=== PATIENT | female | born 1990 | race Caucasian/White ===

== ENCOUNTER 2017-05-25 12:05 | Inpatient (IN) | payer OTHER ==
[2017-05-25] MEDS ORDERED: LIDOCAINE 1% 20 ML VIAL (10MG/ML) FOR IV START INTRADERMA PRN (12:37)
[2017-05-25] MEDS ORDERED: LACTATED RINGERS 1,000 ML IV ONE (12:37)
[2017-05-25] MEDS ORDERED: CITRIC ACID-SODIUM CITRATE 15 ML CUP PO ONE (12:37)
[2017-05-25] MEDS ORDERED: ceFAZolin IN SWFI 2 GM/20 ML SYRINGE IVP ONE (12:37)
[2017-05-25] MEDS ORDERED: OXYTOCIN 10 UNIT/ML 1 ML VIAL ONE (12:44)
[2017-05-25] MEDS ORDERED: ceFAZolin 1,000 MG VIAL ONE (12:44)
[2017-05-25] MEDS ORDERED: ONDANSETRON 4 MG/2 ML VIAL ONE (12:44)
[2017-05-25] MEDS ORDERED: SUCCINYLCHOLINE CHLORIDE 100 MG/5 ML SYR IV ONE (12:44)
[2017-05-25] MEDS ORDERED: PROPOFOL 10 MG/ML 20 ML VIAL IV ONE (12:44)
[2017-05-25] MEDS ORDERED: DEXAMETHASONE SOD PHOS (MDV) 100 MG/10 ML VIAL ONE (12:44)
[2017-05-25] MEDS ORDERED: KETOROLAC 30 MG/ML 1 ML VIAL ONE (12:44)
[2017-05-25] MEDS ORDERED: fentaNYL (PF) 50 MCG/ML 2 ML AMP ONE (12:44)
--- NOTE | 2017-05-25 13:29 | P.HPOB ---
History of Present Illness H&P Date: 05/25/17 Chief Complaint: Contractions This is a 26-year-old female 3 para 1 with an estimated date of confinement of 05/27/2017, estimated gestational age of 39-5/7 weeks, who presented to labor and delivery complaining of contractions that have worsened since earlier this morning. She denies any rupture of membranes or vaginal bleeding. She admits to good movement. care has been with Dr. Saenz and has been uncomplicated. She is scheduled for repeat section in 2 days. labs: GC/chlamydia-negative Glucose-107 Blood type-A+ Antibody screen-negative Hemoglobin-13.3 Rubella-immune HIV-nonreactive Hepatitis B surface antigen-negative RPR-nonreactive Obstetrical ultrasound-normal anatomy One hour Glucola-141 Three-hour Glucola-within normal limits Review of Systems Constitutional: Denies chills, Denies fever Eyes: denies blurred vision, denies pain Ears, nose, mouth and throat: Denies headache, Denies sore throat Cardiovascular: Denies chest pain, Denies shortness of breath Respiratory: Denies cough Gastrointestinal: Reports abdominal pain (Contractions) Genitourinary: Reports pelvic pain, Reports , Denies abnormal vaginal bleeding Musculoskeletal: Reports low back pain Neurological: Denies numbness, Denies weakness Psychiatric: Denies anxiety, Denies depression Past Medical History Past Medical History: No Reported History History of Any Multi-Drug Resistant Organisms: None Reported Past Surgical History: Section, Cholecystectomy Additional Past Surgical History / Comment(s): D&C Past Anesthesia/Blood Transfusion Reactions: No Reported Reaction Past Psychological History: No Psychological Hx Reported Smoking Status: Never smoker Past Alcohol Use History: None Reported Past Drug Use History: None Reported - Past Family History Mother Family Medical History: Cancer Additional Family Medical History / Comment(s): CERVICAL CA Medications and Allergies Home Medications Medication Instructions Recorded Confirmed Type Pnv,Calcium 72/Iron/Folic Acid 1 tab PO DAILY 05/22/17 05/22/17 History [ Plus Tablet] Allergies Allergy/AdvReac Type Severity Reaction Status Date / Time nickel Allergy Unknown Rash/Hives Verified 05/22/17 14:37 Exam Osteopathic Statement: *. No significant issues noted on an osteopathic structural exam other than those noted in the History and Physical/Consult. HEENT: Within normal limits Heart: Regular rate and rhythm Lungs: Clear to auscultation bilaterally Abdomen: Cervix: Closed heart tones: 140s with repetitive late decelerations to the 60s following most of the contractions. Contractions every 2-3 minutes Extremities: Negative Homans Assessment and Plan (1) 39 weeks gestation of Current Visit: Yes Status: Acute Code(s): Z3A.39 - 39 WEEKS GESTATION OF SNOMED Code(s): 17928147 (2) Non-reassuring heart rate or rhythm affecting management of fetus Current Visit: Yes Status: Acute Code(s): [id number] - SNOMED Code(s): 294910905 Plan: Admission. Emergent low transverse section. I have discussed the risks, benefits, and alternative therapies for the above- mentioned procedure and for both sedation/anesthesia as well as necessary blood products administration, if indicated, as they pertain to this patient. The patient has indicated her understanding and acceptance of the risks and procedures discussed.
--- NOTE | 2017-05-25 13:43 | P.OP ---
Date of Procedure: 05/25/17 Preoperative Diagnosis: 1. Intrauterine at 39-5/7 weeks. 2. Repetitive late decelerations. 3. History of previous section. Postoperative Diagnosis: Same Procedure(s) Performed: Repeat low transverse section Anesthesia: RHONDA Surgeon: Diana Dunham Venereal Disease Control Head #1: Janine Lacey Estimated Blood Loss (ml): 600 Pathology: other (Placenta) Condition: stable Disposition: floor Indications for Procedure: This is a 26-year-old female 3 para 1 at 39-5/7 weeks who presented with contractions. She was found to be having repetitive late decelerations despite IV hydration. She was counseled emergency section. She has a scheduled section in 2 days from now. I have discussed the risks, benefits, and alternative therapies for the above- mentioned procedure and for both sedation/anesthesia as well as necessary blood products administration, if indicated, as they pertain to this patient. The patient has indicated her understanding and acceptance of the risks and procedures discussed. Operative Findings: A viable female infant is noted in the vertex presentation with scores of 7 at 1 minute and 9 at 5 minutes and weight of 7 lbs. 15 oz. Thick meconium was noted. Normal uterus tubes and ovaries are noted. There is noted to be what appears to be old blood/hematoma behind the bladder on the left side. This is stable and does not appear to be new. Description of Procedure: The patient is taken to the operating room where she is placed in the dorsal supine position with leftward tilt. Heart tones are placed on the monitor upon arrival to the section room and repetitive decelerations are still noted. She is prepped and draped in the normal sterile fashion. General anesthesia is given. Once anesthesia gave the okay, the surgery was started. A Pfannenstiel skin incision was made with a scalpel through the previous laparotomy scar. A second knife was used to carry the incision down to the underlying layer of fascia. The fascia was nicked in the midline with a scalpel and then extended laterally bilaterally with Tena scissors. The anterior lip of the fascia was grasped with 2 Marybeth clamps and then dissected off the underlying rectus muscle in the midline with Tena scissors. The inferior aspect of the fascial incision was grasped with 2 Marybeth clamps and dissected off the underlying rectus muscle and the midline with Tena scissors. Next the peritoneum layer was tented up with 2 hemostats and then entered sharply with the scalpel. The incision is extended superiorly and inferiorly with Metzenbaum scissors. Next a DeLee retractor is placed. The vesicouterine peritoneum is entered sharply with Metzenbaum scissors and extended laterally bilaterally with Metzenbaum scissors and then the bladder flap is pushed inferiorly. The lower uterine segment is incised in transverse fashion with the scalpel and then bluntly entered with a hemostat. Thick meconium fluid is noted. The incision was then extended laterally bilaterally with 2 fingers. Next the 's head is delivered through the incision. Nose and mouth are bulb suctioned. The remainder of the is easily delivered and placed on mother's abdomen. Cord is clamped and cut. is taken to warmer by nursing staff. Uterine fundus is gently massaged and placenta is delivered manually. Uterus is exteriorized and cleared of all clots and debris. Uterine incision is closed with 0 Vicryl suture in a running locked fashion. A second layer of 0 Vicryl suture is used in a running fashion for hemostasis. Several interrupted stitches were also placed for hemostasis. The bladder flap was not reapproximated due to what appears to be an old hematoma on the left side behind the bladder. This is stable and not expanding and appears to be old. Posterior cul-de-sac is suctioned of all clots and debris. Uterus is returned to the abdomen. Incision is noted to be hemostatic. Peritoneal layer is closed with 0 Vicryl suture in a running fashion. Muscle layer is reapproximated with 0 Vicryl suture in interrupted fashion. Fascia layer is then closed with 0 PDS suture with 2 sutures meeting in the midline and the knots buried in either side and in the midline. The subcutaneous tissue was then closed with 2-0 Vicryl suture. Skin layer was then closed with letty. All sponge and needle counts are correct. The patient is taken to recovery room in stable condition.
[2017-05-25 13:49] LABS: Basophils # (A) 0.1 k/uL (0-0.2); Basophils % (A) 1 %; Eosinophils # (A) 0.1 k/uL (0-0.7); Eosinophils % (A) 1 %; HCT 46.5 % (34.0-46.0); HGB 15.1 gm/dL (11.4-16.0); Lymphocytes # (A) 2.3 k/uL (1.0-4.8); Lymphocytes % (A) 19 %; MCH 28.7 pg (25.0-35.0); MCHC 32.4 g/dL (31.0-37.0); MCV 88.6 fL (80.0-100.0); Monocytes # (A) 0.8 k/uL (0-1.0); Monocytes % (A) 6 %; Neutrophils # (A) 8.7 k/uL (1.3-7.7); Neutrophils % (A) 72 %; Platelet Count 174 k/uL (150-450); RBC 5.25 m/uL (3.80-5.40); WBC 12.1 k/uL (3.8-10.6)
[2017-05-25 14:21] LABS: Large Platelets Present
[2017-05-25] MEDS ORDERED: diphenhydrAMINE 50 MG CAP PO PRN (14:36)
[2017-05-25] MEDS ORDERED: ACETAMINOPHEN TAB 325 MG TAB PO PRN (14:36)
[2017-05-25] MEDS ORDERED: diphenhydrAMINE 50 MG/ML 1 ML VIAL IVP PRN ×2 (14:36)
[2017-05-25] MEDS ORDERED: Acetaminophen-Codeine 300-30mg TAB PO PRN (14:36)
[2017-05-25] MEDS ORDERED: diphenhydrAMINE 25 MG CAP PO PRN (14:36)
[2017-05-25] MEDS ORDERED: METOCLOPRAMIDE 5 MG/ML 2 ML VIAL IVP PRN ×2 (14:36)
[2017-05-25] MEDS ORDERED: NALOXONE 0.4 MG/ML 1 ML VIAL IV PRN ×2 (14:36)
[2017-05-25] MEDS ORDERED: LACTATED RINGERS 1,000 ML IV SCH (14:36)
[2017-05-25] MEDS ORDERED: OXYTOCIN 20 UNITS/1000 ML NS 1,000 ML IV SCH (14:36)
[2017-05-25] MEDS ORDERED: ZOLPIDEM 5 MG TAB PO PRN (14:36)
[2017-05-25] MEDS ORDERED: ONDANSETRON 4 MG/2 ML VIAL IVP PRN ×2 (14:36)
[2017-05-25] MEDS ORDERED: SIMETHICONE 80 MG CHEWABLE PO PRN (14:36)
[2017-05-25 15:29] VITALS: BMI 32.5
[2017-05-25] MEDS: HYDROmorphone PCA 5 MG/25 ML SYRINGE IV PRN (16:45)
[2017-05-25] MEDS: KETOROLAC 30 MG/ML 1 ML VIAL IVP PRN (21:18)
[2017-05-25] MEDS: LACTATED RINGERS 1,000 ML IV SCH (21:20)
[2017-05-25] MEDS: SENNOSIDES-DOCUSATE SODIUM 1 EACH TAB PO SCH (21:28)
[2017-05-26] MEDS: KETOROLAC 30 MG/ML 1 ML VIAL IVP PRN ×2 (03:49→10:05)
[2017-05-26] MEDS: LACTATED RINGERS 1,000 ML IV SCH ×4 (03:59→21:05)
[2017-05-26] MEDS: HYDROmorphone PCA 5 MG/25 ML SYRINGE IV PRN (05:39)
[2017-05-26 08:44] LABS: Basophils # (A) 0.1 k/uL (0-0.2); Basophils % (A) 0 %; Eosinophils % (A) 0 %; Lymphocytes # (A) 2.6 k/uL (1.0-4.8); Lymphocytes % (A) 18 %; MCH 28.4 pg (25.0-35.0); MCHC 32.4 g/dL (31.0-37.0); MCV 87.6 fL (80.0-100.0); Mean Platelet Volume 11.2; Monocytes # (A) 0.8 k/uL (0-1.0); Monocytes % (A) 6 %; Neutrophils # (A) 10.5 k/uL (1.3-7.7); Neutrophils % (A) 74 %; Platelet Count 135 k/uL (150-450); RBC 4.11 m/uL (3.80-5.40); RDW 13.9 % (11.5-15.5); WBC 14.2 k/uL (3.8-10.6)
[2017-05-26 09:04] LABS: HGB 11.7 gm/dL (11.4-16.0)
--- NOTE | 2017-05-26 09:36 | P.PNOBGPC ---
Subjective - Subjective Principal diagnosis: Post Op day 1 repeat c/s Interval history: doing well. c/o of sore throat as she had general anesthesia. no other problems or concerns this am. all questions answered Patient reports: Reports appetite normal, Reports voiding normally, Reports pain well controlled, Reports ambulating normally : doing well Objective - Vital Signs Latest vital signs: Vital Signs Temp Pulse Resp BP Pulse Ox 05/26/17 03:55 98.3 F 68 16 100/46 98 05/26/17 00:00 98.0 F 70 16 101/51 96 05/25/17 20:00 97.7 F 72 16 122/70 100 05/25/17 15:36 98.2 F 78 18 123/74 98 05/25/17 15:14 99 05/25/17 15:00 74 20 125/77 99 05/25/17 14:36 98 05/25/17 14:30 73 18 123/73 99 05/25/17 14:15 18 L 77 H 131/77 05/25/17 14:00 75 18 130/75 97 05/25/17 13:45 76 18 132/96 98 05/25/17 13:32 97 05/25/17 13:25 96.9 F L 90 16 131/77 97 05/25/17 12:15 97.9 F 86 20 119/75 97 Intake and Output 05/25/17 05/26/17 05/26/17 22:59 06:59 14:59 Output Total 1600 725 Balance -1600 -725 Output: Urine 400 725 Uretheral (Coello) 400 Estimated Blood Loss 1200 Other: Voiding Method Indwelling Catheter # Voids 1 1 - Exam Lungs: bilateral: normal Chest: Normal S1, Normal S2 Extremities: Present: normal Abdomen: Present: normal appearance, soft. Absent: distention, tenderness Incision: Present: normal, dry, intact Uterus: Present: normal, firm - Labs Labs: Abnormal Lab Results - Last 24 Hours (Table) 05/25/17 05/26/17 Range/Units 12:40 07:19 WBC 12.1 H 14.2 H (3.8-10.6) k/uL Hct 46.5 H (34.0-46.0) % Neutrophils # 8.7 H (1.3-7.7) k/uL
[2017-05-26] MEDS: SENNOSIDES-DOCUSATE SODIUM 1 EACH TAB PO SCH ×2 (10:06→20:02)
[2017-05-26 11:33] LABS: Large Platelets Present
[2017-05-26] MEDS: IBUPROFEN 600 MG TAB PO PRN ×2 (15:26→20:02)
[2017-05-26] MEDS: Acetaminophen-Codeine 300-30mg TAB PO PRN ×2 (17:40→23:18)
[2017-05-27] MEDS: IBUPROFEN 600 MG TAB PO PRN ×2 (03:15→10:04)
[2017-05-27] MEDS: Acetaminophen-Codeine 300-30mg TAB PO PRN (08:02)
--- NOTE | 2017-05-27 08:33 | P.DS ---
Providers Date of admission: 05/25/17 12:37 Expected date of discharge: 05/27/17 Attending physician: El Saenz Primary care physician: Stated None Hospital Course: Anabelle is doing very well post op day 2. She is involuting, voiding, and she is tolerating her diet. She voices no complaints. Vital signs are stable and afebrile. Heart regular, lungs clear, extremities without pain. Abdomen soft uterus is firm lochia is reported light. Incisions clean dry and intact. We'll plan removal letty today and she'll follow up with me in 1 week. All of the discharge instructions were thoroughly reviewed and all questions are answered for her. She is stable for discharge this time. Prescription for Tylenol 3 and Motrin are provided. Patient Condition at Discharge: Good Plan - Discharge Summary New Discharge Prescriptions: New Acetaminophen-Codeine 300-30mg [Tylenol #3] 1 tab PO Q4H PRN #30 tablet PRN Reason: Pain Ibuprofen [Motrin] 600 mg PO Q6HR PRN #30 tab PRN Reason: Pain No Action Pnv,Calcium 72/Iron/Folic Acid [ Plus Tablet] 1 tab PO DAILY Discharge Medication List Pnv,Calcium 72/Iron/Folic Acid [ Plus Tablet] 1 tab PO DAILY 05/22/17 [ History] Acetaminophen-Codeine 300-30mg [Tylenol #3] 1 tab PO Q4H PRN #30 tablet [Rx] Ibuprofen [Motrin] 600 mg PO Q6HR PRN #30 tab 05/27/17 [Rx] Follow up Appointment(s)/Referral(s): El Saenz DO [Doctor of Osteopathic Medicine] - 1 Week Activity/Diet/Wound Care/Special Instructions: no heavy lifting, limit stairs and driving, and pelvic rest. If any high temperatures, heavy bleeding, or severe pain call my office.
[2017-05-27 10:00] VITALS: BP 126/59; PULSE 90; RESP 16; TEMP 98
[2017-05-27] MEDS: SENNOSIDES-DOCUSATE SODIUM 1 EACH TAB PO SCH (10:00)
== END 2017-05-27 13:00 | disposition home or self-care (01) | DRG 766 ==
LOC: FBPOP 12:05 → 4FBP 12:37
PROVIDERS: ADMIT Obstetrics & Gynecology; ATTEND Obstetrics & Gynecology
PROC: 10D00Z1 Extraction of Products of Conception, Low, Open Approach (ICD-10-PCS; principal; 2017-05-25 12:30)
DX: O34.211 Maternal care for low transverse scar from previous cesarean delivery (principal); J02.9 Acute pharyngitis, unspecified; O76 Abnormality in fetal heart rate and rhythm complicating labor and delivery; O77.0 Labor and delivery complicated by meconium in amniotic fluid; O75.89 Other specified complications of labor and delivery; Z3A.39 39 weeks gestation of pregnancy; Z37.0 Single live birth; Z80.49 Family history of malignant neoplasm of other genital organs; Z90.49 Acquired absence of other specified parts of digestive tract
CPT/HCPCS: 85025; 86850; 86900; 86901; 88307

== ENCOUNTER 2020-08-16 06:09 | Day surgery (SDC) | payer BC, OTHER ==
[2020-08-14 11:14] VITALS: BMI 37.4
--- NOTE | 2020-08-15 17:09 | P.HPOB ---
History of Present Illness H&P Date: 08/15/20 Chief Complaint: Family planning: Retained nexminor Ahn is a 29-year-old female 3 para 2 who is completed her family planning and desires permanent sterilization. She has had a history of 2 C- sections and understands increased risk of bladder or bowel injury due to same. She is scheduled for a laparoscopic tubal occlusion with Filshie clips. Risks/benefits/alternatives were reviewed with patient in detail and all questions were answered for her prior to proceeding to the operative. She is also aware this procedure is designed to be permanent and is not designed to be reversed. She understands there is a small failure rate of approximately 4 per thousand. She is also going to have her nexplanon removed at the same time while we are in the operating room. All questions are answered for her prior to proceeding to the operating room. Past Medical History Past Medical History: No Reported History History of Any Multi-Drug Resistant Organisms: None Reported Past Surgical History: Section, Cholecystectomy Additional Past Surgical History / Comment(s): D&C Past Anesthesia/Blood Transfusion Reactions: No Reported Reaction Smoking Status: Never smoker - Past Family History Mother History Unknown: Yes Family Medical History: Cancer Additional Family Medical History / Comment(s): CERVICAL CA Medications and Allergies Home Medications Medication Instructions Recorded Confirmed Type Etonogestrel [Nexplanon] 1 implant SQ [id number] 08/14/20 08/14/20 History Allergies Allergy/AdvReac Type Severity Reaction Status Date / Time nickel Allergy Unknown Rash/Hives Verified 08/14/20 11:09 Exam Osteopathic Statement: *. No significant issues noted on an osteopathic structural exam other than those noted in the History and Physical/Consult. - OBG Physical Exam Breast: both: normal (no masses) Abdomen: bowel sounds normal, no diffuse tenderness, no bruit present, no guarding noted, no hepatomegaly, no splenomegaly, no mass Vulva: both: normal Vagina: normal moisture, no discharge Cervix: no lesion, no discharge Uterus: normal size, normal contour Adnexa: both: normal Anus/Rectum: normal perianal skin, no rectal mass, no hemorrhoids, heme negative
[~2020-08-16 06:09] MED LIST: LACTATED RINGERS 1,000 ML IV SCH; ONDANSETRON 4 MG/2 ML VIAL IVP ONE; Pre Op ABX Message 1 EACH MISC MISCELLANE ONE
[2020-08-16] MEDS ORDERED: LIDOCAINE 1% (10MG/ML) FOR IV START INTRADERMA ONE (06:44)
[2020-08-16] MEDS ORDERED: HYDROmorphone 0.5 MG/0.5 ML SYRINGE IVP PRN (07:00)
[2020-08-16] MEDS ORDERED: fentaNYL (PF) 50 MCG/ML 2 ML AMP IV PRN (07:00)
[2020-08-16] MEDS ORDERED: MIDAZOLAM 2 MG/2 ML VIAL ONE (07:29)
[2020-08-16] MEDS ORDERED: fentaNYL (PF) 50 MCG/ML 2 ML AMP ONE (07:29)
[2020-08-16] MEDS ORDERED: PROPOFOL 10 MG/ML 20 ML VIAL IV ONE (07:29)
[2020-08-16] MEDS ORDERED: LIDOCAINE 1% INJ 10MG/ML (20 ML MDV) ONE (07:29)
[2020-08-16] MEDS ORDERED: SUCCINYLCHOLINE CHLORIDE 100 MG/5 ML SYR IV ONE (07:29)
[2020-08-16] MEDS ORDERED: KETOROLAC 15 MG/ML 1 ML VIAL ONE (07:29)
[2020-08-16] MEDS ORDERED: BUPIVACAINE (PF) 0.25% 30 ML VIAL SQ ONE (07:34)
--- NOTE | 2020-08-16 08:34 | P.OP ---
Date of Procedure: 08/16/20 Preoperative Diagnosis: Family planning and retained nexplanon Postoperative Diagnosis: Same Procedure(s) Performed: Laparoscopic tubal occlusion with Kleppinger and removal of nexplanon from left upper arm Anesthesia: RHONDA Surgeon: El Saenz Estimated Blood Loss (ml): 5 IV fluids (ml): 300 Urine output (ml): 50 Pathology: none sent Condition: stable Disposition: same day Operative Findings: Due to discovery in preop of medical ALLERGY Filshie clips were not used and Kleppinger was used instead Description of Procedure: Patient was taken to the operating suite where a general anesthetic was found be adequate. She was prepped and draped in normal sterile fashion and placed in dorsal lithotomy position. Initially a speculum was inserted in vagina and anterior lip of the cervix identified and grasped with a single-tooth tenaculum. Speedway manipulator was inserted without difficulty. Red rubber catheter was then used to drain the bladder of urine and then this was removed. Gloves were then changed and attention was turned to abdominal portion procedure where 2 mL of quarter percent Marcaine was injected periumbilically. Through this injected anesthetic a 5 mm skin incision was made, and through this incision, under direct visualization with an optical trocar and sleeve, the camera was placed. Once peritoneal placement was assured gas was allowed to fully insufflate the abdomen and patient was placed in steep Trendelenburg position. Second 8 mm skin incision was then made 3 cm above the pubic symphysis in the midline and an 8 mm trocar and sleeve were inserted through this opening. Observations [place] noted. No gross pathology was noted therefore uterus is elevated and first the right fallopian tube was identified grasped with Wallyinger and cautery was applied. He was done in 3 separate locations approximately 1 12:45 half centimeter apart with good burn noted. In similar fashion on the left side was occluded. Once this was accomplished gas allowed to expel from the abdomen 5 deep breaths were provided. Ports were removed and 4-0 Vicryl used to close incision subcuticularly. About 4 mL of quarter Marcaine was then injected around these incisions. Left arm which had Rodolfo been prepped was then attended to and draped. Identifying the device a small incision was made with a scalpel and using hemostat the device was grasped and removed without difficulty. 4-0 Vicryl was then used to close incision subcuticular. All incidents were then removed. Sponge, lap, needle counts were all correct 2. Patient was then taken to the recovery room in stable and satisfactory condition. Plan - Discharge Summary Discharge Rx Participant: Yes New Discharge Prescriptions: New Ibuprofen [Motrin] 600 mg PO Q6HR PRN #30 tab PRN Reason: Pain HYDROcodone/APAP 5-325MG [[place] 5-325] 1 tab PO Q4HR PRN #20 tab PRN Reason: Pain No Action Etonogestrel [Nexplanon] 1 implant SQ [id number] Discharge Medication List Etonogestrel [Nexplanon] 1 implant SQ [id number] 08/14/20 [History] HYDROcodone/APAP 5-325MG [[place] 5-325] 1 tab PO Q4HR PRN #20 tab 08/16/20 [Rx] Ibuprofen [Motrin] 600 mg PO Q6HR PRN #30 tab 08/16/20 [Rx] Follow up Appointment(s)/Referral(s): lE Saenz DO [Doctor of Osteopathic Medicine] - 2 Weeks Activity/Diet/Wound Care/Special Instructions: No heavy lifting, limit stairs and driving, and pelvic rest. If any high temperatures, heavy bleeding, or severe pain call my office Discharge Disposition: HOME SELF-CARE
[2020-08-16 08:40] VITALS: TEMP 98.8
[2020-08-16] MEDS ORDERED: LACTATED RINGERS 1,000 ML IV ONE (09:22)
[2020-08-16 09:47] VITALS: BP 105/68; PULSE 75; RESP 16
== END 2020-08-16 10:12 | disposition home or self-care (01) ==
LOC: OR 06:09
PROVIDERS: ATTEND Obstetrics & Gynecology
DX: Z30.2 Encounter for sterilization (principal); Z30.46 Encounter for surveillance of implantable subdermal contraceptive; K08.409 Partial loss of teeth, unspecified cause, unspecified class; K08.89 Other specified disorders of teeth and supporting structures; Z98.890 Other specified postprocedural states; Z90.49 Acquired absence of other specified parts of digestive tract; Z91.09 Other allergy status, other than to drugs and biological substances; Z80.49 Family history of malignant neoplasm of other genital organs
CPT/HCPCS: 81025; 58670; 11982; J2250; J2405; J2001; J3010; J1885; J0330; J2704

== ENCOUNTER 2021-04-11 17:49 | Emergency (ER) | payer BC, OTHER ==
[2021-04-11] MEDS ORDERED: SODIUM CHLORIDE 0.9% 1,000 ML IV STA (18:22)
[2021-04-11 18:23] VITALS: BP 111/72; PULSE 103; TEMP 100.2
[2021-04-11] MEDS ORDERED: ONDANSETRON 4 MG/2 ML VIAL IVP STA (18:24)
--- NOTE | 2021-04-11 18:26 | ED ---
URI HPI - General Chief Complaint: Upper Respiratory Infection Stated Complaint: COVID+/Wants infusion Time Seen by Provider: 04/11/21 17:49 Source: patient, RN notes reviewed Mode of arrival: ambulatory Limitations: no limitations - History of Present Illness Initial Comments: Patient is a 30-year-old female presenting to the emergency department reque sting monoclonal antibodies. Patient tested positive for covid last week, she started having symptoms a couple days before that. She states her symptoms seemed to start off very mild, mild headache, congestion but then over the last few days started having some nausea and vomiting, body aches, fevers and chills. She states today her nausea is only mild, she is able to tolerate foods. She did lose her taste and smell. She denies any chest pain or shortness of breath. She did take Tylenol and Motrin just prior to arrival. She has no further complaints. - Related Data Home Medications Medication Instructions Recorded Confirmed Etonogestrel [Nexplanon] 1 implant SQ [id number] 08/14/20 08/16/20 Previous Rx's Medication Instructions Recorded HYDROcodone/APAP 5-325MG [[place] 1 tab PO Q4HR PRN #20 tab 08/16/20 5-325] Ibuprofen [Motrin] 600 mg PO Q6HR PRN #30 tab 08/16/20 Allergies Allergy/AdvReac Type Severity Reaction Status Date / Time nickel Allergy Unknown Rash/Hives Verified 08/16/20 06:27 Review of Systems ROS Statement: Those systems with pertinent positive or pertinent negative responses have been documented in the HPI. ROS Other: All systems not noted in ROS Statement are negative. Past Medical History Past Medical History: No Reported History History of Any Multi-Drug Resistant Organisms: None Reported Past Surgical History: Section, Cholecystectomy Additional Past Surgical History / Comment(s): D&C Past Anesthesia/Blood Transfusion Reactions: No Reported Reaction Past Psychological History: No Psychological Hx Reported Smoking Status: Never smoker - Past Family History Mother History Unknown: Yes Family Medical History: Cancer Additional Family Medical History / Comment(s): CERVICAL CA General Exam - General Exam Comments Initial Comments: GENERAL: Patient is well-developed and well-nourished. Patient is nontoxic and in no acute distress. HEAD: Atraumatic, normocephalic. EYES: Pupils equal round and reactive to light, extraocular movements intact, sclera anicteric, conjunctiva are normal. Eyelids were unremarkable. ENT: Moist mucous membranes. NECK: Normal range of motion, supple without lymphadenopathy or JVD. LUNGS: Unlabored respirations. Breath sounds clear to auscultation bilaterally and equal. No wheezes rales or rhonchi. HEART: Regular rate and rhythm without murmurs, rubs or gallops. ABDOMEN: Soft, nontender, normoactive bowel sounds. No guarding, no rebound. No masses appreciated. MUSCULOSKELETAL: Normal extremities with adequate strength and normal range of motion, no pitting or edema. No clubbing or cyanosis. NEUROLOGICAL: Patient is alert and oriented x 3. SKIN: Warm, Dry, normal turgor, no rashes or lesions noted. Limitations: no limitations Course Vital Signs 04/11/21 18:17 Temperature 100.2 F H Pulse Rate 103 H Respiratory 21 Rate Blood Pressure 111/72 O2 Sat by Pulse 96 Oximetry Medical Decision Making - Medical Decision Making Patient is a 30-year-old female here requesting monoclonal antibodies. She was called with positive. She had some mild nausea today. She did take Tylenol and Motrin just prior to arrival, her temperature is 100.9, rest of vitals within normal limits. She does qualify for monoclonal antibodies, she did receive thes e without adverse side effects. She will continue with Tylenol and Motrin at home. She can follow up with her primary care. Return parameters were discussed thoroughly and she verbalized understanding. Disposition Clinical Impression: COVID-19 Disposition: HOME SELF-CARE Condition: Stable Instructions (If sedation given, give patient instructions): Coronavirus Disease 2019 (COVID-19) Additional Instructions: Please return to the Emergency Department if symptoms worsen or any other concerns. Continue to alternate between Tylenol and Motrin for fever control. Increase your fluids. Follow-up with your primary care as needed. Is patient prescribed a controlled substance at d/c from ED?: No Referrals: Tommy France MD [Primary Care Provider] - 1-2 days
[2021-04-11] MEDS ORDERED: SODIUM CHLORIDE 0.9% 50 ML IVPB ONE (18:45)
[2021-04-11] MEDS ORDERED: BAMLANIVIMAB (EUA) 700 MG, ETESEVIMAB (EUA) 1,400 MG in SODIUM CHLORIDE 0.9% 50 ML IVPB ONE (18:45)
[2021-04-11 18:51] VITALS: RESP 20
== END 2021-04-11 20:43 | disposition home or self-care (01) ==
LOC: EC 17:49
DX: U07.1 COVID-19 (principal); Z91.048 Other nonmedicinal substance allergy status
CPT/HCPCS: 99283; 96374; 96375; J2405; J3490

== ENCOUNTER 2023-01-27 11:55 | Emergency (ER) | payer BC, OTHER ==
[2023-01-27 12:19] VITALS: BP 119/73; PULSE 98; RESP 16; TEMP 98
--- NOTE | 2023-01-27 13:09 | XR ---
EXAMINATION TYPE: XR foot complete LT DATE OF EXAM: 01/27/2023 CLINICAL HISTORY: pain TECHNIQUE: Frontal, lateral and oblique images of the left foot are obtained. COMPARISON: None. FINDINGS: There is no acute fracture/dislocation evident. The joint spaces appear within normal waddell its. The overlying soft tissue appears unremarkable. IMPRESSION: There is no acute fracture or dislocation. ICD 10 NO FRACTURE, INITIAL EVALUATION
--- NOTE | 2023-01-27 13:10 | XR ---
EXAMINATION TYPE: XR ankle complete RT DATE OF EXAM: 01/27/2023 COMPARISON: NONE HISTORY: Pain TECHNIQUE: Frontal, lateral and oblique images of the right ankle are obtained. COMPARISON: None. FINDINGS: There is no acute fracture/dislocation evident. The joint spaces appear within normal waddell its. Lateral soft tissue swelling noted. IMPRESSION: There is no acute fracture or dislocation seen.
[2023-01-27] MEDS ORDERED: ACET/COD 300 MG/30 MG STARTER PACK 6 TAB BTL PO STA (13:38)
[2023-01-27] MEDS ORDERED: IBUPROFEN 600 MG TAB PO STA (13:38)
[2023-01-27] MEDS ORDERED: HYDROcodone/APAP 5-325MG 1 EACH TAB PO STA (13:38)
--- NOTE | 2023-01-27 13:45 | ED ---
General Adult HPI - General Chief complaint: Extremity Injury, Lower Stated complaint: BILAT ankle injury-[facility] Time Seen by Provider: 01/27/23 13:24 Source: patient, RN notes reviewed Mode of arrival: wheelchair Limitations: no limitations - History of Present Illness Initial comments: 32-year-old female presents emergency Department chief complaint of right ankle pain, left foot pain. Patient states she is at work stepped off the curb rolled her ankle/foot. Patient complains of pain with ambulation. No prior fractures no paresthesias no head injury no other injuries noted. - Related Data Home Medications Medication Instructions Recorded Confirmed Etonogestrel [Nexplanon] 1 implant SQ [id number] 08/14/20 08/16/20 Previous Rx's Medication Instructions Recorded HYDROcodone/APAP 5-325MG [[place] 1 tab PO Q4HR PRN #20 tab 08/16/20 5-325] Ibuprofen [Motrin] 600 mg PO Q6HR PRN #30 tab 08/16/20 Ibuprofen [Motrin] 600 mg PO Q8HR PRN #20 tab 01/27/23 Allergies Allergy/AdvReac Type Severity Reaction Status Date / Time nickel Allergy Unknown Rash/Hives Verified 01/27/23 12:16 Review of Systems ROS Statement: Those systems with pertinent positive or pertinent negative responses have been documented in the HPI. ROS Other: All systems not noted in ROS Statement are negative. Past Medical History Past Medical History: No Reported History History of Any Multi-Drug Resistant Organisms: None Reported Past Surgical History: Section, Cholecystectomy Additional Past Surgical History / Comment(s): D&C Past Anesthesia/Blood Transfusion Reactions: No Reported Reaction Past Psychological History: No Psychological Hx Reported Smoking Status: Never smoker Past Alcohol Use History: None Reported Past Drug Use History: None Reported - Past Family History Mother History Unknown: Yes Family Medical History: Cancer Additional Family Medical History / Comment(s): CERVICAL CA General Exam Limitations: no limitations General appearance: alert, in no apparent distress Head exam: Present: atraumatic, normocephalic, normal inspection Eye exam: Present: normal appearance, PERRL, EOMI. Absent: scleral icterus, conjunctival injection, periorbital swelling Respiratory exam: Present: normal lung sounds bilaterally. Absent: respiratory distress, wheezes, rales, rhonchi, stridor Cardiovascular Exam: Present: regular rate, normal rhythm, normal heart sounds. Absent: systolic murmur, diastolic murmur, rubs, gallop, clicks Extremities exam: Present: other (Right ankle there is swelling noted, times palpation the lateral malleolus region neurovascular intact no tenderness above or below, left ankle nontender, left foot swelling and tenderness palpation her last contact) Course Vital Signs 01/27/23 12:16 Temperature 98 F Pulse Rate 98 Respiratory 16 Rate Blood Pressure 119/73 O2 Sat by Pulse 96 Oximetry Medical Decision Making - Medical Decision Making Was pt. sent in by a medical professional or institution (, AUDRA, EVALUATION ADVISOR, urgent care, hospital, or fdc...) When possible be specific @ -No Did you speak to anyone other than the patient for history (EMS, parent, family, police, friend...)? What history was obtained from this source @ -No Did you review nursing and triage notes (agree or disagree)? Why? @ -I reviewed and agree with nursing and triage notes Were old charts reviewed (outside hosp., previous admission, EMS record, old EKG, old radiological studies, urgent care reports/EKG's, fdc records)? Report findings @ -No old charts were reviewed Differential Diagnosis (chest pain, altered mental status, abdominal pain women, abdominal pain men, vaginal bleeding, weakness, fever, dyspnea, syncope, headache, dizziness, GI bleed, back pain, seizure, CVA, palpatations, mental health, musculoskeletal)? @ -Ankle sprain, ankle fracture, foot sprain, foot fracture EKG interpreted by me (3pts min.). @ -None X-rays interpreted by me (1pt min.). @ -X-ray right ankle no acute fracture dislocation, x-ray left foot no acute fracture dislocation CT interpreted by me (1pt min.). @ -None done U/S interpreted by me (1pt. min.). @ -None done What testing was considered but not performed or refused? (CT, X-rays, U/S, la bs)? Why? @ -None What meds were considered but not given or refused? Why? @ -None Did you discuss the management of the patient with other professionals (professionals i.e. , AUDRA, EVALUATION ADVISOR, lab, RT, psych nurse, geriatric social work professor, sole leveler machine, teacher, aircraft electronics technical officer, embedded case manager)? Give summary @ -No Was smoking cessation discussed for >3mins.? @ -No Was critical care preformed (if so, how long)? @ -No Were there social determinants of health that impacted care today? How? (Homelessness, low income, unemployed, alcoholism, drug addiction, transportation, low edu. Level, literacy, decrease access to med. care, residential, rehab)? @ -No Was there de-escalation of care discussed even if they declined (Discuss DNR or withdrawal of care, Hospice)? DNR status @ -No What co-morbidities impacted this encounter? (DM, HTN, Smoking, COPD, CAD, Cancer, CVA, ARF, Chemo, Hep., AIDS, mental health diagnosis, sleep apnea, morbid obesity)? @ -None Was patient admitted / discharged? Hospital course, mention meds given and route, prescriptions, significant lab abnormalities, going to OR and other pertinent info. @ -Discharge patient has right ankle sprain, left foot sprain patient will be given analgesics, crutches return parameters were discussed patient advised follow-up with orthopedics. Undiagnosed new problem with uncertain prognosis? @ -No Drug Therapy requiring intensive monitoring for toxicity (Heparin, Nitro, Insulin, Cardizem)? @ -No Were any procedures done? @ -No Diagnosis/symptom? @ -Right ankle sprain, left foot sprain Acute, or Chronic, or Acute on Chronic? @ -Acute Uncomplicated (without systemic symptoms) or Complicated (systemic symptoms)? @ -[Uncomplicated] Side effects of treatment? @ -[No] Exacerbation, Progression, or Severe Exacerbation? @ -[No] Poses a threat to life or bodily function? How? (Chest pain, [place], [place], pneumonia, PE, COPD, DKA, ARF, appy, cholecystitis, CVA, Diverticulitis, Homicidal, Suicidal, threat to staff... and all critical care pts) @ -[No] Disposition Clinical Impression: Right ankle sprain, Sprain of left foot Disposition: HOME SELF-CARE Condition: Stable Instructions (If sedation given, give patient instructions): Ankle Sprain (ED), Foot Sprain (ED) Additional Instructions: Please return to the Emergency Department if symptoms worsen or any other concerns. Prescriptions: Ibuprofen [Motrin] 600 mg PO Q8HR PRN #20 tab PRN Reason: Pain Is patient prescribed a controlled substance at d/c from ED?: No Referrals: Tommy France [Primary Care Provider] - 1-2 days Jorge Oneil DO [Doctor of Osteopathic Medicine] - 1-2 days Time of Disposition: 13:45
== END 2023-01-27 14:12 | disposition home or self-care (01) ==
LOC: EC 11:55
DX: S93.401A Sprain of unspecified ligament of right ankle, initial encounter (principal); S93.602A Unspecified sprain of left foot, initial encounter; Z91.09 Other allergy status, other than to drugs and biological substances; X50.1XXA Overexertion from prolonged static or awkward postures, initial encounter; Y99.0 Civilian activity done for income or pay
CPT/HCPCS: 99283

== ENCOUNTER → 2024-01-22 | Outpatient (CLI) | payer BC ==
--- NOTE | 2024-01-22 14:15 | MM ---
Reason for Exam: Clinical finding. Baseline mammogram. Indicated Problems: Lump or thickening of the right side for 3 Week(s). Patient History: Menarche at age 8. First Full-Term at age 19. Hysterectomy at age 30. Prior Study Comparison: Patient's first Mammogram. No prior studies available for comparison. Tissue Density: The breasts are heterogeneously dense, which may obscure small masses. Findings: Analyzed By CAD. Palpable marker along the 12:00 position right breast. 3.9 cm focal asymmetry 12:00 underlying the palpable marker. This appears to become less defined on spot 3-D CC view but incompletely disperses on additional views. Otherwise, no suspicious microcalcification or other discrete abnormality is seen. Further ultrasound evaluation recommended. Overall Assessment: Incomplete: need additional imaging evaluation, BI-RAD 0 Management: Diagnostic Breast Ultrasound of the right breast. Electronically signed and approved by: Jessica Mendoza M.D. Radiologist
--- NOTE | 2024-01-22 14:44 | USB ---
Reason for Exam: Additional evaluation requested from abnormal screening. Patient History: Menarche at age 8. First Full-Term at age 19. Hysterectomy at age 30. Findings: The whole breast of the right breast, the axilla of the right breast and the retroareolar of the right breast were scanned. A complete US of all four quadrants of the breast , axilla, and retro-areolar region were reviewed. At the 12:00 palpable site, 5 cm from the nipple, there is a large irregular hypoechoic mass measuring 3.4 x 1.5 x 2.5 cm. There is a 9 mm nodule located at the periphery of the dominant mass which is included in the total measurement. Tissue sampling recommended. At the 11:00 position, 3 cm from the nipple, there is a benign 8 mm cyst. At the 12:00 position, 4 cm from the nipple, located approximately 1 cm away from the dominant mass, there is a vague hypoechoic area measuring 9 x 8 mm in antiradial but not as well delineated on radial imaging. Tissue sampling recommended. At the 11:00 position, 2 cm from the nipple, there is a suspicious hypoechoic mass measuring 1.2 x 1.1 x 0.8 cm. Tissue sampling recommended. Within the axilla, there is a 1.1 x 0.9 x 0.8 cm nonenlarged but diffusely thickened lymph node with cortex measuring 4 mm. Tissue sampling recommended with IR due to slightly deep location. Overall Assessment: Highly suggestive of malignancy, BI-RAD 5 Management: Ultrasound Core Biopsy of the right breast. Total four site biopsy ([address] [facility] and the axilla with IR). Surgical consultation. Breast MRI can also be considered. Results were given to the patient verbally at the time of exam. Electronically signed and approved by: Jessica Mendoza M.D. Radiologist
== END | disposition home or self-care (01) ==
LOC: RADMAMWWP 13:11
PROVIDERS: ATTEND Obstetrics & Gynecology Obstetrics
DX: N63.0 Unspecified lump in unspecified breast
CPT/HCPCS: 77062; 77066

== ENCOUNTER 2024-01-30 08:46 | Day surgery (SDC) | payer BC ==
[2024-01-30] MEDS: ALPRAZolam 0.5 MG TAB PO STA (09:16)
[2024-01-30 10:27] VITALS: RESP 16; TEMP 98.1
[2024-01-30 14:51] VITALS: BP 115/75; PULSE 65
--- NOTE | 2024-02-12 10:21 | USB ---
Prior Study Comparison: 01/22/2024 Bilateral MG 3D diag mammo w/cad [facility], [facility]. Pathology Description: Location: axilla. Marker Left Behind. Needle Type: Bard 14g x 10cm Cores: 3 The procedure of ultrasound guided core biopsy was explained to the patient. Benefits, alternatives, and risks were discussed. An informed consent was then obtained. A time out was performed. The nonenlarged but slightly prominent lymph node within the right axilla measuring 1.1 x 1.0 x 0.9 cm is identified and targeted for biopsy. This lymph node is equivocal but being sampled on a precautionary basis. Patient is scheduled for right breast biopsies next week. The patient was placed in supine positioning for imaging and for the procedure. The overlying skin was prepped and draped in usual sterile fashion. 7 ml 1% lidocaine was used as anesthetic into the skin and subcutaneous tissue up to area of concern in the right axilla. Under ultrasound guidance, an 18/17 gauge Bard coaxial biopsy system was used to obtain 3 core samples. Following this, a HydroMark butterfly biopsy clip was left in the lesion. No postprocedure mammogram even location. The patient tolerated the procedure well without any immediate complication. The patient was discharged home in stable condition. IMPRESSION: Successful, uncomplicated ultrasound guided core biopsy of the equivocal right axillary lymph node. Patient scheduled for right breast biopsies next week. PATHOLOGY STATUS: Results pending. Pathology Results: Result: Benign. Pathology and radiology were reviewed. Findings are concordant. RIGHT AXILLA, CORE BIOPSY: Core fragments of reactive lymphoid tissue (see note). Notes The patient's stated clinical history of imaging evidence of a large right breast mass is noted. In order to further assess for metastatic carcinoma, CK7 immunostaining is performed with appropriate control on the tissue block. CK7 staining is negative with background staining, which supports negativity for metastatic carcinoma. Reactive germinal centers and focal histiocytosis is appreciated. Overall Assessment: Benign Management: Surgical Consultation of the right breast. Electronically signed and approved by: Jessica Mendoza M.D. Radiologist
== END 2024-01-30 10:55 | disposition home or self-care (01) ==
LOC: RADPROMAIN 08:46
PROVIDERS: ATTEND Obstetrics & Gynecology Obstetrics
DX: R92.8 Other abnormal and inconclusive findings on diagnostic imaging of breast (principal)
CPT/HCPCS: 88305; 88342; 19083; 38505; A4648

== ENCOUNTER → 2024-02-04 | Day surgery (SDC) | payer BC ==
--- NOTE | 2024-02-10 11:05 | MM ---
Reason for Exam: Post Procedure Mammogram. Last screening mammogram was performed less than 1 month ago. Patient History: Menarche at age 8. First Full-Term at age 19. Hysterectomy at age 30. Prior Study Comparison: 01/22/2024 Bilateral MG 3D diag mammo w/cad [facility], [facility]. Tissue Density: Right: The breasts are heterogeneously dense, which may obscure small masses. Pathology Description: Location: 11 o'clock. Needle Type: Mammotone Cores: 6 Skin Nicks: 1 Gauge: 13 Pathology Description: Location: 12 o'clock. Marker Left Behind. Needle Type: Mammotone Cores: 10 Skin Nicks: 1 Gauge: 13 Pathology Description: Location: 12 o'clock. Marker Left Behind. Needle Type: Mammotone Cores: 4 Skin Nicks: 1 Gauge: 13 The procedure of ultrasound guided core biopsy was explained to the patient. Benefits, alternatives, and risks were discussed. An informed consent was then obtained. A timeout was performed. Repeat timeout was performed during the break between the second third biopsy. 3 targets were obtained 12:00 position 5 cm A, o'clock 4 cm from nipple B, and 11:00 2 cm nipple C. The patient was placed in supine positioning for imaging and for the procedure. The overlying skin was prepped and draped in usual sterile fashion. Lidocaine was used as anesthetic into the skin and subcutaneous tissue up to area of concern in the breast. A small skin annamaria was made with surgical scalpel. A: Under ultrasound guidance, a 12-gauge vacuum assisted biopsy gun device was used to obtain 10 core samples. A biopsy clip was left in lesion. Hydromark Wing core marker was placed. B: Under ultrasound guidance, a 12-gauge vacuum assisted biopsy gun device was used to obtain 4 core samples. A biopsy clip was left in lesion. Hydromark coil core marker was placed. C: Under ultrasound guidance, a 12-gauge vacuum assisted biopsy gun device was used to obtain 6 core samples. A biopsy clip was left in lesion. Hydromark Butterfly core marker was placed. The patient tolerated the procedure well without any immediate complication. The patient was kept in the radiology department for short stay after the procedure and then discharged home in stable condition. Postprocedure mammogram: The patient was transferred to mammography for physician ordered post procedure mammogram for clip placement verification. 3 core markers are identified within the breast Impression: Successful ultrasound guided core biopsy of three areas of concern in the right breast, full pathology results to follow. Recommendations: 1. Recommendations are pending pathology results. [facility], , 02/09/2024 10:34 PM. Pathology Results: Result: Malignant, Invasive ductal carcinoma. A. RIGHT BREAST, TWELVE O'CLOCK 5 CM FROM NIPPLE, CORE BIOPSY: Invasive high grade ductal carcinoma with focal high grade ductal carcinoma in situ (see cancer summary and comment). B. RIGHT BREAST, TWELVE O'CLOCK, 4 CM FROM NIPPLE, CORE BIOPSY: Sclerotic fibrosis with focal fibrocystic change, favor fibrous scar. C. RIGHT BREAST, ELEVEN O'CLOCK, CORE BIOPSY: Invasive high grade ductal carcinoma (see cancer summary and comment). Overall Assessment: Malignant Assessment: MG diagnostic mammo RT wo CAD - Right: Known biopsy proven malignancy, BI-RAD 6. Management: Surgical Consultation of the right breast. Electronically signed and approved by: Anup Hardy D.O. Radiologis
== END ==
LOC: RADUSWWP 07:36
PROVIDERS: ATTEND Obstetrics & Gynecology Obstetrics
DX: R92.8 Other abnormal and inconclusive findings on diagnostic imaging of breast
CPT/HCPCS: 88305; 88342; 88341; 77065; 19083; 19084; A4648

== ENCOUNTER → 2024-03-09 | Outpatient (CLI) | payer BC ==
--- NOTE | 2024-03-10 09:40 | CA ---
Transthoracic Echo Report Name: Anabelle Russell Age: 33 Gender: F : 1990 Exam Date: 03/09/2024 13:14 Exam Location: [facility] Ht (in): 65 Wt (lb): 218 Ordering Physician: Jarrett Lugo MD Attending/Referring Phys: Mariana Gregory DO Labeling Machine Operator Melly Garrett RDCS Procedure CPT: Indications: Z01.818 Chemo Cardiac Hx: Technical Quality: Good Contrast 1: Total Dose (mL): Contrast 2: Total Dose (mL): MEASUREMENTS (Male / Female) Normal Values 2D ECHO LV Diastolic Diameter PLAX 5.0 cm 4.2 - 5.9 / 3.9 - 5.3 cm LV Systolic Diameter PLAX 2.3 cm IVS Diastolic Thickness 1.0 cm 0.6 - 1.0 / 0.6 - 0.9 cm LVPW Diastolic Thickness 0.9 cm 0.6 - 1.0 / 0.6 - 0.9 cm LV Relative Wall Thickness 0.4 RV Internal Dim ED PLAX 1.8 cm LA Systolic Diameter LX 3.4 cm 3.0 - 4.0 / 2.7 - 3.8 cm LV Diastolic Volume MOD BP 61.3 cm??? 67 - 155 / 56 - 104 cm??? LV Systolic Volume MOD BP 22.7 cm??? 22 - 58 / 19 - 49 cm??? LV Ejection Fraction MOD BP 63.0 % >= 55 % LV Cardiac Index MOD BP 1244.4 cm???/min???m??? LV Diastolic Volume MOD 4C 66.5 cm??? LV Systolic Volume MOD 4C 27.3 cm??? LV Ejection Fraction MOD 4C 59.0 % LV Cardiac Index MOD 4C 1263.7 cm???/min???m??? LV Diastolic Length 4C 7.6 cm LV Systolic Length 4C 6.1 cm LV Diastolic Volume MOD 2C 55.0 cm??? LV Systolic Volume MOD 2C 18.3 cm??? LV Ejection Fraction MOD 2C 66.8 % LV Cardiac Index MOD 2C 1182.6 cm???/min???m??? LV Diastolic Length 2C 7.3 cm LV Systolic Length 2C 5.9 cm LA Volume 42.3 cm??? 18 - 58 / 22 - 52 cm??? LA Volume Index 19.5 cm???/m??? 16 - 28 cm???/m??? M-MODE Aortic Root Diameter MM 2.9 cm LA Systolic Diameter MM 3.4 cm LA Ao Ratio MM 1.2 AV Cusp Separation MM 1.7 cm DOPPLER MV Area PHT 2.5 cm??? Mitral E Point Velocity 90.1 cm/s Mitral A Point Velocity 58.3 cm/s Mitral E to A Ratio 1.5 MV Deceleration Time 305.6 ms TR Peak Velocity 226.4 cm/s TR Peak Gradient 20.5 mmHg FINDINGS Left Ventricle Left ventricular ejection fraction is estimated at 55-60 %. Normal Left ventricular size, wall thickness, systolic function with no obvious regional wall motion abnormalities. Normal Left ventricular diastolic filling pattern. Right Ventricle Normal right ventricular size and function. Right ventricular systolic pressure within normal limits. Right Atrium Normal right atrial size. Left Atrium Normal left atrial size. Mitral Valve Structurally normal mitral valve. Trace mitral regurgitation. No mitral stenosis. Aortic Valve Trileaflet aortic valve. No aortic valve stenosis or regurgitation. Tricuspid Valve Structurally normal tricuspid valve. Trace tricuspid regurgitation. No tricuspid stenosis. Pulmonic Valve Structurally normal pulmonic valve. Trace pulmonic regurgitation. No pulmonic stenosis. Pericardium No pericardial or pleural effusion. Aorta Normal size aortic root and proximal ascending aorta. CONCLUSIONS Normal LV size and systolic function. No significant abnormality on the Doppler exam. No pericardial effusion. No pulmonary hypertension Previewed by: Dr. Ophelia Knight MD (Electronically Signed) Final Date: 10 March 2024 09:39
== END | disposition home or self-care (01) ==
LOC: RADECHMAIN 13:00
PROVIDERS: ATTEND Internal Medicine
CPT/HCPCS: 93306

== ENCOUNTER 2024-03-15 12:07 | Day surgery (SDC) | payer BC ==
[2024-03-11 11:25] VITALS: BMI 36.1
[~2024-03-15 12:07] MED LIST changes: +HYDROmorphone 0.5 MG/0.5 ML SYRINGE IVP PRN; -LACTATED RINGERS 1,000 ML IV SCH; +MIDAZOLAM 2 MG/2 ML VIAL IV PRN; -ONDANSETRON 4 MG/2 ML VIAL IVP ONE; +SCOPOLAMINE 1 MG/72 HR PATCH TRANSDERM ONE
[2024-03-15] MEDS: ONDANSETRON 4 MG/2 ML VIAL IVP ONE (12:48)
[2024-03-15] MEDS: LACTATED RINGERS 1,000 ML IV SCH (12:48)
[2024-03-15] MEDS: DEXAMETHASONE SOD PHOSPHATE 4 MG/ML 1 ML VIAL IV ONE (12:49)
[2024-03-15] MEDS: FAMOTIDINE 20 MG/2 ML VIAL IV STA (12:53)
[2024-03-15] MEDS: IV FLUID CONTINUATION 1,000 ML IV ONE (12:53)
[2024-03-15] MEDS: HEPARIN SODIUM,PORCINE 100 UNIT/ML 5 ML VIAL IV ONE (13:14)
[2024-03-15] MEDS: BUPIVACAINE (PF) 0.25% 30 ML VIAL SQ ONE ×2 (13:14)
[2024-03-15] MEDS ORDERED: MIDAZOLAM 2 MG/2 ML VIAL ONE (13:25)
[2024-03-15] MEDS ORDERED: ePHEDrine 50 MG/ML 1 ML VIAL ONE (13:25)
[2024-03-15] MEDS ORDERED: fentaNYL (PF) 50 MCG/ML 2 ML AMP ONE (13:25)
[2024-03-15] MEDS ORDERED: LIDOCAINE 1% INJ 10MG/ML (20 ML MDV) ONE (13:25)
[2024-03-15] MEDS ORDERED: PROPOFOL 10 MG/ML 20 ML VIAL IV ONE (13:25)
[2024-03-15] MEDS: SODIUM CHLORIDE 0.9% 100 ML with ceFAZolin 2,000 MG IV ONE (13:29)
[2024-03-15 14:33] VITALS: TEMP 97.7
--- NOTE | 2024-03-15 14:47 | P.OP ---
Date of Procedure: 03/15/24 Preoperative Diagnosis: Breast cancer Postoperative Diagnosis: Breast cancer Procedure(s) Performed: Mediport placement with fluoroscopic guidance Anesthesia: MAC Surgeon: Mirta Hayes Pathology: none sent Condition: stable Disposition: same day Indications for Procedure: 33-year-old female with recent diagnosis of breast cancer. She has opted for neoadjuvant chemotherapy after discussion with her oncologist. Plan is for Mediport placement under fluoroscopic guidance. Risks, benefits and altern atives were provided to the patient occluding risks of pneumothorax and bleeding. All questions answered prior to attending the operating suite. Operative Findings: Appropriate flush and withdrawal from the Mediport site Description of Procedure: Patient was brought to the operating suite and placed in supine position on the operating table. Sedation was provided by anesthesia and the patient underwent LMA placement. Patient was then prepped and draped in regular sterile fashion. Subclavian vein was accessed on first attempt and guidewire was placed. Guidewire was noted to go across the chest and not towards the SVC on multiple attempts of moving the guidewire under fluoroscopic guidance. Secondary to inability to travel towards the SVC rather than across the chest, decision was made to access the right IJ. Right IJ was accessed under ultrasound guidance and dark pulsatile blood was withdrawn. Guidewire was placed. Under fluo roscopic guidance, guidewire was noted to be in appropriate position. At this point, incision was made to create pocket for the Mediport and cautery was used to dissect and create pocket. Hemostasis was maintained. Catheter was then tunneled towards the guidewire site and placed through the dilator sheath over the guidewire. This was done under fluoroscopic guidance. Dilator sheath was removed and catheter remained in place. Catheter placement was adjusted under fluoroscopic guidance. It was then attached to the port and locked into place. Appropriate flush and withdrawal with injectable saline was noted through the port. The port was then secured against the prepectoralis fascia using 3-0 Prolene suture. Appropriate flush and withdrawal was noted with heparin lock as well. Final picture was reviewed with no kinking of the catheter. The wound was then closed in layers with 3-0 Vicryl and 4-0 Vicryl subcuticular suture. Sterile dressing was applied. The patient was awakened in the operating suite and taken to postanesthesia care unit in stable condition with plan for portable chest x-ray.
[2024-03-15 15:00] VITALS: RESP 16
--- NOTE | 2024-03-15 15:22 | XR ---
EXAMINATION TYPE: XR chest 1V portable DATE OF EXAM: 03/15/2024 Comparison: None Clinical History: 33-year-old female Mediport Placement Findings: Heart upper limits of normal in size. Right anterior chest wall injection port with catheter tip at t he upper to mid SVC level. Mild interstitial prominence which may be technical. Follow-up as clinical ly indicated. No consolidation or pleural effusion. Impression: Right anterior chest wall injection port. Catheter tip at the upper to mid SVC. [facility], , 03/15/2024 3:20 PM
[2024-03-15 15:24] VITALS: BP 104/53; PULSE 74
--- NOTE | 2024-03-15 17:16 | FL ---
EXAMINATION TYPE: FL guidance operating room DATE OF EXAM: 03/15/2024 Comparison: Non- Clinical History: 33-year-old female Mediport Insertion Findings: Mediport insertion Dr. Hayes DAP: 3.4522 60.9 sec 2 images submitted. [facility], , 03/15/2024 5:14 PM
== END 2024-03-15 16:03 | disposition home or self-care (01) ==
LOC: OR 12:07
PROVIDERS: ATTEND Surgery
DX: C50.811 Malignant neoplasm of overlapping sites of right female breast (principal); Z17.1 Estrogen receptor negative status [ER-]; Z17.22 Progesterone receptor negative status; Z17.32 Human epidermal growth factor receptor 2 negative status; Z88.8 Allergy status to other drugs, medicaments and biological substances; Z80.49 Family history of malignant neoplasm of other genital organs
CPT/HCPCS: 81025; 71045; 36561; C1769; C1788; J2250; J1642; J1100; J2405; J0690; J2003; J3010; J3490; J2704; J0665

== ENCOUNTER 2024-06-11 08:38 | Day surgery (SDC) | payer BC ==
--- NOTE | 2024-06-11 09:51 | P.OP ---
Date of Procedure: 06/11/24 Description of Procedure: Preoperative diagnosis: Malfunctioning port Postoperative diagnosis: Same Procedure: Access of port, fluoroscopic assisted portogram, pharmacal thrombolysis with 2 mg tPA Surgeon: Rosalee Coello D.O. EBL: Less than 5 cc IV fluids: Not measured Urine output: Not measured Drains: None Complications: None immediately apparent stable Condition: Operative indication and findings: Patient is a 33-year-old female undergoing chemo who has a port. She states that is unable to aspirate well, typically they instill some tPA for about 10 minutes and then able to get blood flow. They have always had the benefit of being able to flush the area. Plan for portogram. Risk and benefits discussed. She seems understand. Procedure in detail: Patient was brought to the special suite and placed in supine position. The right chest and port were prepped and draped in usual sterile fashion. The port was accessed. Aspirated and flushed easily. A portogram was performed showing a small area of fibrin sheath at the distal portion therefore this time a decision was made to instill 2 mg of tPA into the port and allow it to dwell. This is then further flushed and a Hep-Lock was placed at the port site. At this time is in good positioning without any obvious kinks or cracks. It may continue to be used. Patient seemingly understands the plan and is willing to proceed.
[2024-06-11] MEDS: ALTEPLASE 2 MG VIAL (CATHFLO) MISCELLANE ONE (09:53)
[2024-06-11] MEDS: IOPAMIDOL-370 100ML BTL INJ ONE (09:54)
--- NOTE | 2024-06-11 10:56 | IR ---
EXAMINATION TYPE: IR cva device check w fluoro DATE OF EXAM: 06/11/2024 CLINICAL HISTORY: Right-sided Mediport catheter not working. TECHNIQUE: Fluoroscopy. COMPARISON: None. FINDINGS: Fluoroscopic guidance was provided during catheter check procedure performed by Dr. Coello. A total of 6 seconds of fluoroscopic time was utilized during the procedure and 52 spot images was acquired. TOTAL DAP = 0.329 Gycm2 IMPRESSION: As Above. [facility], , 06/11/2024 10:54 AM
== END 2024-06-11 10:05 | disposition home or self-care (01) ==
LOC: CATHCVL 08:38
PROVIDERS: ATTEND Surgery
DX: T85.618A Breakdown (mechanical) of other specified internal prosthetic devices, implants and grafts, initial encounter (principal); C50.411 Malignant neoplasm of upper-outer quadrant of right female breast; Z71.3 Dietary counseling and surveillance; Z88.1 Allergy status to other antibiotic agents; Z79.899 Other long term (current) drug therapy
CPT/HCPCS: 36598; 36593; 81025; J1642; J2997; Q9967

== ENCOUNTER 2024-08-31 15:34 | Inpatient (IN) | payer BC ==
[2024-08-31] MEDS: ACETAMINOPHEN TAB 500 MG TAB PO STA (16:15)
[2024-08-31] MEDS: LACTATED RINGERS 1,000 ML IV SCH (16:15)
[2024-08-31] MEDS: PROCHLORPERAZINE 10 MG TAB PO STA (16:34)
[2024-08-31 16:53] LABS: ALT 32 U/L (4-34); AST 25 U/L (14-36); African American GFR (CKD) >90 (>60 ml/min/1.73 sqM); Albumin 3.4 g/dL (3.5-5.0); Alkaline Phosphatase 37 U/L (38-126); Anion Gap 10 mmol/L; Blood Urea Nitrogen 3 mg/dL (7-17); Calcium 9.1 mg/dL (8.4-10.2); Carbon Dioxide 22 mmol/L (22-30); Chloride 99 mmol/L (98-107); Glucose 105 mg/dL (74-99); Magnesium 1.7 mg/dL (1.6-2.3); Non-African American GFR(CKD) >90 (>60 ml/min/1.73 sqM); Potassium 3.3 mmol/L (3.5-5.1); Sodium 131 mmol/L (137-145); Total Bilirubin 0.6 mg/dL (0.2-1.3)
[2024-08-31 17:11] LABS: HCT 24.4 % (37.2-46.3); HGB 8.6 g/dL (12.0-15.0); MCH 32.3 pg (27.0-32.0); MCHC 35.2 g/dL (32.0-37.0); MCV 91.7 fL (80.0-97.0); RBC 2.66 10*6/uL (4.10-5.20); RDW 15.5 % (11.5-14.5)
[2024-08-31 17:15] LABS: WBC 0.31 10*3/uL (4.50-10.00)
--- NOTE | 2024-08-31 17:38 | XR ---
EXAMINATION TYPE: XR chest 2V DATE OF EXAM: 08/31/2024 5:33 PM COMPARISON: Prior chest radiograph, most recent dated 03/15/2024. CLINICAL INDICATION: Female, 33 years old with history of fever on chemo; [facility] TECHNIQUE: XR chest 2V Frontal and lateral views of the chest. FINDINGS: Lungs/Pleura: There is no evidence of pleural effusion, focal consolidation, or pneumothorax. Pulmonary vascularity: Unremarkable. Heart/mediastinum: Cardiomediastinal silhouette is unremarkable. Musculoskeletal: No acute osseous pathology. Other findings: None Lines/Tubes: Right chest wall port catheter with distal catheter tip terminating in the region of the proximal/mid SVC, similar to prior study. IMPRESSION: No acute cardiopulmonary disease/process. [facility], , 08/31/2024 5:35 PM
[2024-08-31 18:01] LABS: Appearance,Urine Clear (Clear); Bilirubin,Urine Negative (Negative); Blood,Urine Negative (Negative); Color,Urine Light Yellow; Glucose,Urine (UA) Negative (Negative); Ketones,Urine Trace (Negative); Leukocyte Esterase,Urine Negative (Negative); Nitrite,Urine Negative (Negative); PH, Urine 7.5 (5.0-8.0); Protein,Urine Negative (Negative); Specific Gravity,Urine 1.014 (1.001-1.035); Urobilinogen,Urine <2.0 mg/dL (<2.0)
[2024-08-31 18:39] LABS: Platelet Count 15 10*3/uL (140-440)
--- NOTE | 2024-08-31 18:46 | ED ---
General Adult HPI - General Chief complaint: Fever Stated complaint: Fever Post Chemo Time Seen by Provider: 08/31/24 15:45 Source: patient Mode of arrival: ambulatory Limitations: no limitations - History of Present Illness Initial comments: 33-year-old female with past medical history of bilateral breast cancer who presents emergency department with a fever. Patient received her last chemotherapy last Friday. Yesterday she went into her oncology office and received a liter of fluid. They checked her blood counts and found that her blo od counts were low but she did not require transfusion. Last night she started having a high temperature. She took some Tylenol. Awoke this morning and continued to have a high temp. She last took Tylenol at 730 this morning. She denies any symptoms. No fever or shortness of breath. No chest pain. No abdominal pain. Admits to mild dysuria. No sick contacts. She does have a tunneled port on the right chest wall. no other alleviating, precipitating or modifying factors - Related Data Home Medications Medication Instructions Recorded Confirmed OLANZapine [ZyPREXA] 5 mg PO HS 08/31/24 08/31/24 Omeprazole [PriLOSEC] 20 mg PO DAILY 08/31/24 08/31/24 Prochlorperazine [Compazine] 5 mg PO BID@0730,1530 08/31/24 08/31/24 Thyroid,Pork [[place] Thyroid] 60 mg PO HS 08/31/24 08/31/24 Allergies Allergy/AdvReac Type Severity Reaction Status Date / Time nickel Allergy Unknown Rash/Hives Verified 08/31/24 17:38 bacitracin Allergy Rash/Hives Verified 08/31/24 17:38 [From Neosporin ([id number])] neomycin Allergy Rash/Hives Verified 08/31/24 17:38 [From Neosporin ([id number])] polymyxin B Allergy Rash/Hives Verified 08/31/24 17:38 [From Neosporin ([id number])] Review of Systems ROS Statement: Those systems with pertinent positive or pertinent negative responses have been documented in the HPI. ROS Other: All systems not noted in ROS Statement are negative. Past Medical History Past Medical History: Cancer, GERD/Reflux Additional Past Medical History / Comment(s): hx. breast cancer 2023- currently receiving chemo History of Any Multi-Drug Resistant Organisms: None Reported Past Surgical History: Section, Cholecystectomy, Tubal Ligation Additional Past Surgical History / Comment(s): D&C, right side port a cath Past Anesthesia/Blood Transfusion Reactions: No Reported Reaction Past Psychological History: Anxiety Smoking Status: Never smoker Past Alcohol Use History: None Reported Past Drug Use History: None Reported - Past Family History Mother History Unknown: Yes Family Medical History: Cancer Additional Family Medical History / Comment(s): CERVICAL CA General Exam Limitations: no limitations General appearance: alert, in no apparent distress Head exam: Present: atraumatic, normocephalic, normal inspection Eye exam: Present: normal appearance, PERRL, EOMI. Absent: scleral icterus, conjunctival injection, periorbital swelling ENT exam: Present: normal exam, mucous membranes moist Neck exam: Present: normal inspection. Absent: tenderness, meningismus, lymphadenopathy Respiratory exam: Present: normal lung sounds bilaterally. Absent: respiratory distress, wheezes, rales, rhonchi, stridor Cardiovascular Exam: Present: normal rhythm, tachycardia, normal heart sounds. Absent: systolic murmur, diastolic murmur, rubs, gallop, clicks GI/Abdominal exam: Present: soft, normal bowel sounds. Absent: distended, tenderness, guarding, rebound, rigid Extremities exam: Present: normal inspection, full ROM, normal capillary refill. Absent: tenderness, pedal edema, joint swelling, calf tenderness Back exam: Present: normal inspection Neurological exam: Present: alert, oriented X3, CN II-XII intact Psychiatric exam: Present: normal affect, normal mood Skin exam: Present: warm, dry, intact, normal color. Absent: rash Course Vital Signs 08/31/24 08/31/24 08/31/24 15:38 17:08 18:00 Temperature 103 F H 103.1 F H 102.9 F H Pulse Rate 152 H 117 H 114 H Respiratory 18 18 18 Rate Blood Pressure 94/66 111/61 99/53 O2 Sat by Pulse 99 100 99 Oximetry 08/31/24 08/31/24 20:03 20:09 Temperature 100.5 F H Pulse Rate 105 H Respiratory 16 Rate Blood Pressure 104/64 O2 Sat by Pulse 98 Oximetry Procedures - [place] Protocol (Time Out) Nurse: Anabelle Chase Medical Decision Making - Medical Decision Making Was pt. sent in by a medical professional or institution (AUDRA Grewal, STRE[employer] ENGINEER, urgent care, hospital, or retirement...) When possible be specific @ -Patient sent in from her oncology office Did you speak to anyone other than the patient for history (EMS, parent, family, police, friend...)? What history was obtained from this source @ -No Did you review nursing and triage notes (agree or disagree)? Why? @ -I reviewed and agree with nursing and triage notes Were old charts reviewed (outside hosp., previous admission, EMS record, old EKG, old radiological studies, urgent care reports/EKG's, retirement records)? Report findings @ -No old charts were reviewed Differential Diagnosis (chest pain, altered mental status, abdominal pain women, abdominal pain men, vaginal bleeding, weakness, fever, dyspnea, syncope, headache, dizziness, GI bleed, back pain, seizure, CVA, palpatations, mental health, musculoskeletal)? @ -Differential Fever: Pneumonia, viral URI, endocarditis, myocarditis, pericarditis, otitis, sinusitis, peritonsillar Abscess, retropharyngeal Abscess, epiglottitis, peritonitis, appendicitis, Radha cystitis, diverticulitis, hepatitis, colitis, UTI, PID, TOA, pyelonephritis, prostatitis, epididymitis, meningitis, encephalitis, pulmonary embolism, CVA, thyroid storm, pancreatitis, adrenal crisis, cavernous sinus thrombosis, this is not meant to be an all-inclusive list. EKG interpreted by me (3pts min.). @ -Yes and demonstrates sinus tachycardia with a rate of 114. NC interval 134. QRS 79. QTc of 398. No acute ST segment elevations or depressions X-rays interpreted by me (1pt min.). @ -yes which demonstrates no acute process CT interpreted by me (1pt min.). @ -None done U/S interpreted by me (1pt. min.). @ -None done What testing was considered but not performed or refused? (CT, X-rays, U/S, labs)? Why? @ -None What meds were considered but not given or refused? Why? @ -None Did you discuss the management of the patient with other professionals (professionals i.e. AUDRA Grewal, STRE[employer] ENGINEER, lab, RT, psych nurse, social media marketing analyst, crane operator cab, teacher, real estate utilization officer, case aide)? Give summary @ -Spoke with Maria E from [facility] for admission Was smoking cessation discussed for >3mins.? @ -No Was critical care preformed (if so, how long)? @ -No Were there social determinants of health that impacted care today? How? (Homelessness, low income, unemployed, alcoholism, drug addiction, transportation, low edu. Level, literacy, decrease access to med. care, custodial, rehab)? @ -No Was there de-escalation of care discussed even if they declined (Discuss DNR or withdrawal of care, Hospice)? DNR status @ -No What co-morbidities impacted this encounter? (DM, HTN, Smoking, COPD, CAD, Cancer, CVA, ARF, Chemo, Hep., AIDS, mental health diagnosis, sleep apnea, morbid obesity)? @ -Breast cancer on chemotherapy Was patient admitted / discharged? Hospital course, mention meds given and route, prescriptions, significant lab abnormalities, going to OR and other pertinent info. @ -Upon arrival patient seen and evaluated in trauma 2. Thorough history and physical exam was performed. She is placed on continuous pulse ox and cardiac monitoring. She is given a gram of Tylenol and 2 normal liters of lactated Ringer's. Laboratory studies are conducted. Lactic acid is normal. Chest x- ray and viral swab are negative. Patient currently has no source of infection. She is empirically covered with antibiotics that are broad-spectrum as I cannot find any other source. This decision was made after viral swab returns and was negative at 1722. I recommended admission due to febrile neutropenia for which the patient was agreeable. Patient admitted to the floor in stable condition Undiagnosed new problem with uncertain prognosis? @ -No Drug Therapy requiring intensive monitoring for toxicity (Heparin, Nitro, Insulin, Cardizem)? @ -No Were any procedures done? @ -No Diagnosis/symptom? @ -Febrile neutropenia, history of breast cancer on chemo Acute, or Chronic, or Acute on Chronic? @ -Acute Uncomplicated (without systemic symptoms) or Complicated (systemic symptoms)? @ -Complicated Side effects of treatment? @ -No Exacerbation, Progression, or Severe Exacerbation? @ -No Poses a threat to life or bodily function? How? (Chest pain, [place], [place], pneumonia, PE, COPD, DKA, ARF, appy, cholecystitis, CVA, Diverticulitis, Homicidal, Radha cidal, threat to staff... and all critical care pts) @ -Yes this patient is neutropenic with a fever - Lab Data Result diagrams: 09/04/24 05:44 09/04/24 05:44 Lab Results 08/31/24 08/31/24 08/31/24 Range/Units 16:05 16:09 16:09 WBC 0.31 L* (4.50-10.00) 10*3/uL RBC 2.66 L (4.10-5.20) 10*6/uL Hgb 8.6 L (12.0-15.0) g/dL Hct 24.4 L (37.2-46.3) % MCV 91.7 (80.0-97.0) fL MCH 32.3 H (27.0-32.0) pg MCHC 35.2 (32.0-37.0) g/dL Plt Count 15 L* (140-440) 10*3/uL Immature Gran % (Auto) 0 % Immature Gran # 0.00 (0.00-0.04) 10*3/uL Neutrophils # [employer] Differential Comment Manual Slide Review Performed Sodium 131 L (137-145) mmol/L Potassium 3.3 L (3.5-5.1) mmol/L Chloride 99 (98-107) mmol/L Carbon Dioxide 22 (22-30) mmol/L Anion Gap 10 mmol/L BUN 3 L (7-17) mg/dL Creatinine 0.45 L (0.52-1.04) mg/dL Est GFR (CKD-EPI)AfAm >90 (>60 ml/min/1.73 sqM) Est GFR (CKD-EPI)NonAf >90 (>60 ml/min/1.73 sqM) Glucose 105 H (74-99) mg/dL Plasma Lactic Acid Rambo 1.4 (0.7-2.0) mmol/L Calcium 9.1 (8.4-10.2) mg/dL Magnesium 1.7 (1.6-2.3) mg/dL Total Bilirubin 0.6 (0.2-1.3) mg/dL AST 25 (14-36) U/L ALT 32 (4-34) U/L Alkaline Phosphatase 37 L (38-126) U/L Total Protein 6.0 L (6.3-8.2) g/dL Albumin 3.4 L (3.5-5.0) g/dL Urine Color Urine Appearance (Clear) Urine pH (5.0-8.0) Ur Specific [place] (1.001-1.035) Urine Protein (Negative) Urine Glucose (UA) (Negative) Urine Ketones (Negative) Urine Blood (Negative) Urine Nitrite (Negative) Urine Bilirubin (Negative) Urine Urobilinogen (<2.0) mg/dL Ur Leukocyte Esterase (Negative) Influenza Type A (PCR) (Not Detectd) Influenza Type B (PCR) (Not Detectd) RSV (PCR) (Not Detectd) SARS-CoV-2 (PCR) (Not Detectd) Blood Type Blood Type Recheck Bld Type Recheck Status Antibody Screen Spec Expiration Date 08/31/24 08/31/24 08/31/24 Range/Units 16:10 17:16 19:22 WBC (4.50-10.00) 10*3/uL RBC (4.10-5.20) 10*6/uL Hgb (12.0-15.0) g/dL Hct (37.2-46.3) % MCV (80.0-97.0) fL MCH (27.0-32.0) pg MCHC (32.0-37.0) g/dL Plt Count (140-440) 10*3/uL Immature Gran % (Auto) % Immature Gran # (0.00-0.04) 10*3/uL Neutrophils # Differential Comment Manual Slide Review Sodium (137-145) mmol/L Potassium (3.5-5.1) mmol/L Chloride (98-107) mmol/L Carbon Dioxide (22-30) mmol/L Anion Gap mmol/L BUN (7-17) mg/dL Creatinine (0.52-1.04) mg/dL Est GFR (CKD-EPI)AfAm (>60 ml/min/1.73 sqM) Est GFR (CKD-EPI)NonAf (>60 ml/min/1.73 sqM) Glucose (74-99) mg/dL Plasma Lactic Acid Rambo (0.7-2.0) mmol/L Calcium (8.4-10.2) mg/dL Magnesium (1.6-2.3) mg/dL Total Bilirubin (0.2-1.3) mg/dL AST (14-36) U/L ALT (4-34) U/L Alkaline Phosphatase (38-126) U/L Total Protein (6.3-8.2) g/dL Albumin (3.5-5.0) g/dL Urine Color Light Yellow Urine Appearance Clear (Clear) Urine pH 7.5 (5.0-8.0) Ur Specific [place] 1.014 (1.001-1.035) Urine Protein Negative (Negative) Urine Glucose (UA) Negative (Negative) Urine Ketones Trace H (Negative) Urine Blood Negative (Negative) Urine Nitrite Negative (Negative) Urine Bilirubin Negative (Negative) Urine Urobilinogen <2.0 (<2.0) mg/dL Ur Leukocyte Esterase Negative (Negative) Influenza Type A (PCR) Not Detected (Not Detectd) Influenza Type B (PCR) Not Detected (Not Detectd) RSV (PCR) Not Detected (Not Detectd) SARS-CoV-2 (PCR) Not Detected (Not Detectd) Blood Type A Positive Blood Type Recheck A Pos Bld Type Recheck Status No Antibody Screen NEGATIVE Spec Expiration Date 09/03/20242309 Disposition Clinical Impression: Neutropenic fever, Pancytopenia Disposition: ADMITTED IP TO THIS [facility] Condition: Stable Is patient prescribed a controlled substance at d/c from ED?: No Time of Disposition: 20:01 Decision to Admit Reason: Admit from EC Decision Date: 08/31/24 Decision Time: 20:01
[2024-08-31] MEDS ORDERED: NALOXONE 0.4 MG/ML 1 ML VIAL IV PRN (20:01)
[2024-08-31] MEDS: CEFEPIME 2 GM in SODIUM CHLORIDE 0.9% 100 ML IVPB STA (20:04)
[2024-08-31 20:14] LABS: Influenza A Not Detected (Not Detectd); Influenza B Not Detected (Not Detectd); RSV Not Detected (Not Detectd)
[2024-08-31] MEDS: SODIUM CHLORIDE 0.9% 1,000 ML IV SCH (20:34)
[2024-08-31] MEDS: HYDROCORTISONE 2.5% RECTAL CREAM 30 GM TUBE RECTAL SCH (23:34)
[2024-08-31] MEDS: OLANZapine 2.5 MG TAB PO SCH (23:34)
[2024-08-31] MEDS: THYROID, PORK 30 MG TAB PO SCH (23:34)
[2024-08-31] MEDS: ACETAMINOPHEN TAB 325 MG TAB PO PRN (23:55)
[2024-09-01] MEDS: SODIUM CHLORIDE 0.9% 1,000 ML IV ONE (01:53)
[2024-09-01] MEDS: PANTOPRAZOLE 40 MG TABLET PO SCH (08:25)
[2024-09-01] MEDS: PROCHLORPERAZINE 5 MG TAB PO SCH (08:25)
[2024-09-01 08:31] LABS: BUN/Creat Ratio <8.75 Ratio (12.00-20.00); Blood Urea Nitrogen <3.5 mg/dL (9.0-27.0); Calcium 7.7 mg/dL (8.7-10.3); Carbon Dioxide 20.6 mmol/L (21.6-31.8); Chloride 106 mmol/L (96-109); Glucose 102 mg/dL (70-110); Potassium 3.4 mmol/L (3.5-5.5); Sodium 134 mmol/L (135-145)
[2024-09-01 09:14] LABS: Basophils # (A) 0 X 10*3/uL (0.00-0.10); Basophils % (A) 0 %; Eosinophils # (A) 0.01 X 10*3/uL (0.04-0.35); Eosinophils % (A) 3.4 %; HCT 21.3 % (37.2-46.3); Immature Grans, Automated 0 %; Immature Platelet Fraction 8.7 % (1.1-6.1); Lymphocytes # (A) 0.23 X 10*3/uL (0.90-5.00); Lymphocytes % (A) 79.3 %; MCH 31.4 pg (27.0-32.0); MCHC 32.9 g/dL (32.0-37.0); MCV 95.5 FL (80.0-97.0); Monocytes # (A) 0.02 X 10*3/uL (0.20-1.00); Monocytes % (A) 6.9 %; NRBC Per 100 WBC 0 X 10*3/uL (0.00-0.01); Neutrophils # (A) 0.03 X 10*3/uL (1.80-7.70); Neutrophils % (A) 10.4 %; Platelet Count 8 X 10*3/uL (140-440); RBC 2.23 X 10*6/uL (4.10-5.20); RBC Morphology Normal (Normal); RDW 15.5 % (11.5-14.5); WBC 0.29 X 10*3/uL (4.50-10.00)
[2024-09-01] MEDS: POTASSIUM CHLORIDE ER 20 MEQ TAB.ER PO STA (09:35)
[2024-09-01 12:36] LABS: T4, Free (Free Thyroxine) 0.78 ng/dL (0.78-2.19)
[2024-09-01] MEDS: ACETAMINOPHEN TAB 325 MG TAB PO STA (12:44)
[2024-09-01] MEDS ORDERED: MEPERIDINE 25 MG/ML SYRINGE IVP PRN (12:46)
[2024-09-01 16:03] VITALS: BMI 32.5
--- NOTE | 2024-09-01 16:49 | P.HPIM ---
History of Present Illness H&P Date: 09/01/24 History of present illness; Patient is a 33-year-old female with bilateral breast cancer who follows with Dr. Lira who presents with a fever. Patient received her last chemotherapy last Friday the . On Friday she went into her oncology office and received a liter of fluid. They checked her blood counts and found that her blood counts were low but she did not require transfusion. She also began to have elevated temperature and rigors for which she took Tylenol, which gave her some short-term relief. Yesterday morning morning she continued to have a high temp. She denies any other symptoms. Does admit to mild dysuria. Patient reports absence of chest pain, palpitations, dyspnea, cough, abdominal pain, nausea, vomiting, constipation, diarrhea, dizziness, and headache. Spoke with the ER physician, patient admission was accepted by internal medicine service for treatment. REVIEW OF SYSTEMS: Pertinent positives and negatives noted in HPI. PHYSICAL EXAMINATION: Vitals reviewed GENERAL: Resting comfortably in bed. Obese. EYES: PERRL, no scleral injection or icterus. No vision loss HENT: Normocephalic, atraumatic, hearing grossly intact, moist mucous membranes NECK: No tracheal deviation, full range of motion. CARDIOVASCULAR: S1 and S2 present. No murmurs, rubs, or gallops. PULMONARY: Chest is clear to auscultation, no wheezing, rhonchi, or crackles. ABDOMEN: Soft, nontender, nondistended. No palpable organomegaly. MUSCULOSKELETAL: No apparent joint swelling and deformities. EXTREMITIES: No apparent cyanosis, clubbing. No pedal edema. NEUROLOGICAL: Alert and oriented. Gross neurological examination with no apparent focal deficits. SKIN: No apparent rashes. ER FINDINGS: Labs significant for WBC 0.29, hemoglobin 7.0, platelets 8, sodium 134, potassiu m 3.4, bicarb 20.6, TSH <0.015, free T4 78, UA with trace ketones, viral respiratory panel negative EKG independently interpreted showed sinus tachycardia, heart rate of 114, QTc 398, no ST segment elevation or depression seen, no T-wave inversions seen. Chest x-ray done independently interpreted showed no acute cardiopulmonary process. Assessment and Plan: In summary, Patient is a 33-year-old female with bilateral breast cancer who follows with Dr. Lira who presents with a fever. # Neutropenic fever #Bilateral breast cancer #Leukocytopenia with neutropenia Blood cultures ordered UA and chest x-ray negative Begin cefepime 2 g daily Acetaminophen 650 mg every 6 hours as needed for fever Supportive care with cool packs as needed Monitor CBC #Thrombocytopenia due to cancer treatment #Normocytic anemia Platelets given Transfuse RBC if hemoglobin less than 7.0 Monitor CBC #Hypokalemia Given potassium chloride Monitor BMP Chronic Medical Conditions #Hypothyroidism Resume home medication DVT ppx: SCDs Code status: Full code F: IV normal saline E: Replete as needed N: Regular diet A: Ambulatory Anticipated discharge place: Home Anticipated discharge time: Pending clinical course Dr. [place] seen patient with resident, present during exam, and agreed with findings. Dictation was produced using [employer] dictation software. Please excuse any grammatical, word or spelling errors. Past Medical History Past Medical History: Cancer, GERD/Reflux Additional Past Medical History / Comment(s): hx. breast cancer 2023- just finished last of 16 treatments 08/23/24 History of Any Multi-Drug Resistant Organisms: None Reported Past Surgical History: Section, Cholecystectomy, Tubal Ligation Additional Past Surgical History / Comment(s): D&C, right side port a cath Past Anesthesia/Blood Transfusion Reactions: No Reported Reaction Past Psychological History: Anxiety Additional Psychological History / Comment(s): related to health concerns Smoking Status: Never smoker Past Alcohol Use History: None Reported Past Drug Use History: None Reported Additional Drug Use History / Comment(s): . - Past Family History Mother History Unknown: Yes Family Medical History: Cancer Additional Family Medical History / Comment(s): CERVICAL CA Medications and Allergies Home Medications Medication Instructions Recorded Confirmed Type OLANZapine [ZyPREXA] 5 mg PO HS 08/31/24 08/31/24 History Omeprazole [PriLOSEC] 20 mg PO DAILY 08/31/24 08/31/24 History Prochlorperazine [Compazine] 5 mg PO BID@0730,1530 08/31/24 08/31/24 History Thyroid,Pork [[place] Thyroid] 60 mg PO HS 08/31/24 08/31/24 History Allergies Allergy/AdvReac Type Severity Reaction Status Date / Time nickel Allergy Unknown Rash/Hives Verified 08/31/24 17:38 bacitracin Allergy Rash/Hives Verified 08/31/24 17:38 [From Neosporin ([id number])] neomycin Allergy Rash/Hives Verified 08/31/24 17:38 [From Neosporin ([id number])] polymyxin B Allergy Rash/Hives Verified 08/31/24 17:38 [From Neosporin ([id number])] Physical Exam Vitals: Vital Signs Temp Pulse Pulse Resp BP BP Pulse Ox 09/01/24 16:29 98.7 F 09/01/24 15:21 98.8 F 111 H 20 112/69 100 09/01/24 13:10 103.1 F H 123 H 09/01/24 12:21 104.4 F H 143 H 22 104/52 100 09/01/24 11:44 100.6 F H 108 H 18 100/68 09/01/24 10:57 109 H 96/62 09/01/24 10:37 112 H 18 86/49 09/01/24 10:28 101.5 F H 114 H 18 93/55 09/01/24 09:45 102.2 F H 127 H 91/48 09/01/24 07:03 102.3 F H 114 H 22 93/61 100 09/01/24 06:17 100.9 F H 09/01/24 03:06 100.6 F H 118 H 91/54 98 09/01/24 01:10 103.1 F H 130 H 16 94/52 98 08/31/24 23:15 103.2 F H 123 H 16 106/59 100 08/31/24 21:21 100.7 F H 116 H 16 110/70 100 08/31/24 20:09 100.5 F H 08/31/24 20:03 105 H 16 104/64 98 08/31/24 18:00 102.9 F H 114 H 18 99/53 99 08/31/24 17:08 103.1 F H 117 H 18 111/61 100 Intake and Output 09/01/24 09/01/24 09/01/24 06:59 14:59 22:59 Intake Total 299 Balance 299 Intake: Blood Product 299 Platelet Pheresis Pas 299 Psoralen Unit [id number] Other: Voiding Method Toilet # Voids 7 Weight 88.904 kg 88.904 kg Results CBC & Chem 7: 09/01/24 04:28 09/01/24 04:28 Labs: Abnormal Lab Results - Last 24 Hours (Table) 08/31/24 08/31/24 08/31/24 Range/Units 16:05 16:09 17:16 WBC 0.31 L* (4.50-10.00) 10*3/uL RBC 2.66 L (4.10-5.20) 10*6/uL Hgb 8.6 L (12.0-15.0) g/dL Hct 24.4 L (37.2-46.3) % MCH 32.3 H (27.0-32.0) pg RDW (11.5-14.5) % Plt Count 15 L* (140-440) 10*3/uL Neutrophils # (1.80-7.70) X 10*3/uL Lymphocytes # (0.90-5.00) X 10*3/uL Monocytes # (0.20-1.00) X 10*3/uL Eosinophils # (0.04-0.35) X 10*3/uL Immature Plt Fraction (1.1-6.1) % Sodium 131 L (137-145) mmol/L Potassium 3.3 L (3.5-5.1) mmol/L Carbon Dioxide (21.6-31.8) mmol/L BUN 3 L (7-17) mg/dL Creatinine 0.45 L (0.52-1.04) mg/dL BUN/Creatinine Ratio (12.00-20.00) Ratio Glucose 105 H (74-99) mg/dL Calcium (8.7-10.3) mg/dL Alkaline Phosphatase 37 L (38-126) U/L Total Protein 6.0 L (6.3-8.2) g/dL Albumin 3.4 L (3.5-5.0) g/dL TSH (0.465-4.680) mIU/L Urine Ketones Trace H (Negative) 09/01/24 09/01/24 09/01/24 Range/Units 04:28 04:28 04:28 WBC 0.29 A* (4.50-10.00) 10*3/uL RBC 2.23 L (4.10-5.20) 10*6/uL Hgb 7.0 L (12.0-15.0) g/dL Hct 21.3 L (37.2-46.3) % MCH (27.0-32.0) pg RDW 15.5 H (11.5-14.5) % Plt Count 8 A* (140-440) 10*3/uL Neutrophils # 0.03 A* (1.80-7.70) X 10*3/uL Lymphocytes # 0.23 L (0.90-5.00) X 10*3/uL Monocytes # 0.02 L (0.20-1.00) X 10*3/uL Eosinophils # 0.01 L (0.04-0.35) X 10*3/uL Immature Plt Fraction 8.7 H (1.1-6.1) % Sodium 134 L (137-145) mmol/L Potassium 3.4 L (3.5-5.1) mmol/L Carbon Dioxide 20.6 L (21.6-31.8) mmol/L BUN <3.5 L (7-17) mg/dL Creatinine 0.4 L (0.52-1.04) mg/dL BUN/Creatinine Ratio <8.75 L (12.00-20.00) Ratio Glucose (74-99) mg/dL Calcium 7.7 L (8.7-10.3) mg/dL Alkaline Phosphatase (38-126) U/L Total Protein (6.3-8.2) g/dL Albumin (3.5-5.0) g/dL TSH <0.015 L (0.465-4.680) mIU/L Urine Ketones (Negative) Thrombosis Risk Factor Assmnt - Choose All That Apply Any of the Below Risk Factors Present?: No Other Risk Factors: Yes Each Risk Factor Represents 2 Points: Malignancy Other congenital or acquired thrombophilia - If yes, enter type in comment: No Thrombosis Risk Factor Assessment Total Risk Factor Score: 2 Thrombosis Risk Factor Assessment Level: Low Risk
--- NOTE | 2024-09-01 17:34 | P.CONS ---
History of Present Illness - Reason for Consult Consult date: 09/01/24 febrile neutropenia, on treatment for breast carcinoma Requesting physician: Breana Pittman - Chief Complaint fever - History of Present Illness Mrs. Russell is a 33-year-old female patient of Dr. 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 She palpated a lump at the end of December 2023. She had mammography 01/22/2024 with a 3.9 cm focal asymmetry at 12:00 in the right breast. Ultrasound noted hypoechoic mass 3.4 x 1.5 x 2.5. There was also a 9 mm nodule located at the periphery of the mass. There was another lesion 4 cm from the nipple 9 x 8 mm, at 11:00 there was an 8 mm benign cyst. 2 cm from the nipple there was a suspicious 1.2 x 1 .1 x 0.8 centimeter mass. In the right axilla there was a 1 .1 cm thickened, but not enlarged lymph node. Biopsy of the right axillary lymph node 01/30/2024 revealed fragments of reactive lymphoid tissue. 02/05/2024 core needle biopsy of 2 lesions consistent with grade 3 IDC, focal high-grade DCIS, ER/WV negative, HER2 IHC 2+, FISH negative. Biopsy of the other lesion was benign. Biopsy of the larger lesion was consistent with grade 3 IDC. She established care with Dr. Gregory of surgical breast oncology at [facility]. In addition to germline genetic testing, she did have MRI of the breast bilaterally that was performed on 02/26/2024. In the right breast, she was noted to have at least 5 abnormal hyperintense ring-enhancing masses measuring 8 mm, 14 mm, 12 mm, 8 mm, and 13 mm from inferior to superior. There was also noted multiple abnormal hyperintense enhancing level 1, level 2, level 3, and intrapectoral lymph nodes. The left breast noted 1.6 cm enhancing mass in the posterior central lateral portion of the left breast 10 cm from the nipple along with suspicious level 1, level 2, and level 3 axillary lymph nodes. Following this, she was recommended to undergo PET/CT, which is scheduled for 03/12/2024. She is having ultrasound of the left breast on 03/11/2024. Germline testing was negative. Patient initiated carbo/Taxol/Keytruda 03/31/2024, completed 4 cycles at the end of May. Patient has completed 4 cycles of AC and Keytruda 08/23/2024, G-CSF 08/24/2024. She is scheduled for bilateral mastectomy 09/30/2024. Pt is currently admitted with neutropenia fever, chemo induced pancytopenia. She denies oral irritation, sore throat, uncontrolled N,V, appetite is fair to poor right now, no dysuria, hematuria, hematochezia or melena, diarrhea or constipation, rash or new pain. Review of Systems 10 point ROS is neg except as stated in HPI Past Medical History Past Medical History: Cancer, GERD/Reflux Additional Past Medical History / Comment(s): hx. breast cancer 2023- just finished last of 16 treatments 08/23/24 History of Any Multi-Drug Resistant Organisms: None Reported Past Surgical History: Section, Cholecystectomy, Tubal Ligation Additional Past Surgical History / Comment(s): D&C, right side port a cath Past Anesthesia/Blood Transfusion Reactions: No Reported Reaction Past Psychological History: Anxiety Additional Psychological History / Comment(s): related to health concerns Smoking Status: Never smoker Past Alcohol Use History: None Reported Past Drug Use History: None Reported Additional Drug Use History / Comment(s): . - Past Family History Mother History Unknown: Yes Family Medical History: Cancer Additional Family Medical History / Comment(s): CERVICAL CA Medications and Allergies Home Medications Medication Instructions Recorded Confirmed Type OLANZapine [ZyPREXA] 5 mg PO HS 08/31/24 08/31/24 History Omeprazole [PriLOSEC] 20 mg PO DAILY 08/31/24 08/31/24 History Prochlorperazine [Compazine] 5 mg PO BID@0730,1530 08/31/24 08/31/24 History Thyroid,Pork [[place] Thyroid] 60 mg PO HS 08/31/24 08/31/24 History Allergies Allergy/AdvReac Type Severity Reaction Status Date / Time nickel Allergy Unknown Rash/Hives Verified 08/31/24 17:38 bacitracin Allergy Rash/Hives Verified 08/31/24 17:38 [From Neosporin ([id number])] neomycin Allergy Rash/Hives Verified 08/31/24 17:38 [From Neosporin ([id number])] polymyxin B Allergy Rash/Hives Verified 08/31/24 17:38 [From Neosporin ([id number])] Physical Exam Vitals: Vital Signs Temp Pulse Pulse Resp BP BP Pulse Ox 09/01/24 10:28 101.5 F H 114 H 18 93/55 09/01/24 09:45 102.2 F H 127 H 91/48 09/01/24 07:03 102.3 F H 114 H 22 93/61 100 09/01/24 06:17 100.9 F H 09/01/24 03:06 100.6 F H 118 H 91/54 98 09/01/24 01:10 103.1 F H 130 H 16 94/52 98 08/31/24 23:15 103.2 F H 123 H 16 106/59 100 08/31/24 21:21 100.7 F H 116 H 16 110/70 100 08/31/24 20:09 100.5 F H 08/31/24 20:03 105 H 16 104/64 98 08/31/24 18:00 102.9 F H 114 H 18 99/53 99 08/31/24 17:08 103.1 F H 117 H 18 111/61 100 08/31/24 15:38 103 F H 152 H 18 94/66 99 Intake and Output 08/31/24 09/01/24 09/01/24 22:59 06:59 14:59 Intake Total 0 Balance 0 Intake: Blood Product 0 Unit 0 Other: Voiding Method Toilet # Voids 7 Weight 88.904 kg 88.904 kg - Constitutional General appearance: average body habitus, cooperative, no acute distress - EENT Eyes: anicteric sclerae, EOMI ENT: hearing grossly normal, normal oropharynx - Neck Neck: no lymphadenopathy - Respiratory Respiratory: bilateral: CTA - Cardiovascular mild tachycardia Rhythm: regular Heart sounds: normal: S1, S2 Abnormal Heart Sounds: no systolic murmur, no diastolic murmur, no rub, no S3 Gallop, no S4 Gallop, no click, no other leg Peripheral Edema: bilateral: None - Gastrointestinal General gastrointestinal: no absent bowel sounds, no decreased bowel sounds, no distended, no hepatomegaly, no hyperactive bowel sounds, normal bowel sounds, no organomegaly, no rigid, no scaphoid, soft, no splenomegaly, no tenderness, no umbilical hernia, no ventral hernia - Integumentary Integumentary: pale - Neurologic Neurologic: CNII-XII intact - Musculoskeletal Musculoskeletal: generalized weakness, strength equal bilaterally - Psychiatric Psychiatric: A&O x's 3, appropriate affect, intact judgment & insight Results CBC & Chem 7: 09/01/24 04:28 09/01/24 04:28 Labs: Abnormal Lab Results - Last 24 Hours (Table) 08/31/24 08/31/24 08/31/24 Range/Units 16:05 16:09 17:16 WBC 0.31 L* (4.50-10.00) 10*3/uL RBC 2.66 L (4.10-5.20) 10*6/uL Hgb 8.6 L (12.0-15.0) g/dL Hct 24.4 L (37.2-46.3) % MCH 32.3 H (27.0-32.0) pg RDW (11.5-14.5) % Plt Count 15 L* (140-440) 10*3/uL Neutrophils # (1.80-7.70) X 10*3/uL Lymphocytes # (0.90-5.00) X 10*3/uL Monocytes # (0.20-1.00) X 10*3/uL Eosinophils # (0.04-0.35) X 10*3/uL Immature Plt Fraction (1.1-6.1) % Sodium 131 L (137-145) mmol/L Potassium 3.3 L (3.5-5.1) mmol/L Carbon Dioxide (21.6-31.8) mmol/L BUN 3 L (7-17) mg/dL Creatinine 0.45 L (0.52-1.04) mg/dL BUN/Creatinine Ratio (12.00-20.00) Ratio Glucose 105 H (74-99) mg/dL Calcium (8.7-10.3) mg/dL Alkaline Phosphatase 37 L (38-126) U/L Total Protein 6.0 L (6.3-8.2) g/dL Albumin 3.4 L (3.5-5.0) g/dL Urine Ketones Trace H (Negative) 09/01/24 09/01/24 Range/Units 04: 04:28 WBC 0.29 A* (4.50-10.00) 10*3/uL RBC 2.23 L (4.10-5.20) 10*6/uL Hgb 7.0 L (12.0-15.0) g/dL Hct 21.3 L (37.2-46.3) % MCH (27.0-32.0) pg RDW 15.5 H (11.5-14.5) % Plt Count 8 A* (140-440) 10*3/uL Neutrophils # 0.03 A* (1.80-7.70) X 10*3/uL Lymphocytes # 0.23 L (0.90-5.00) X 10*3/uL Monocytes # 0.02 L (0.20-1.00) X 10*3/uL Eosinophils # 0.01 L (0.04-0.35) X 10*3/uL Immature Plt Fraction 8.7 H (1.1-6.1) % Sodium 134 L (137-145) mmol/L Potassium 3.4 L (3.5-5.1) mmol/L Carbon Dioxide 20.6 L (21.6-31.8) mmol/L BUN <3.5 L (7-17) mg/dL Creatinine 0.4 L (0.52-1.04) mg/dL BUN/Creatinine Ratio <8.75 L (12.00-20.00) Ratio Glucose (74-99) mg/dL Calcium 7.7 L (8.7-10.3) mg/dL Alkaline Phosphatase (38-126) U/L Total Protein (6.3-8.2) g/dL Albumin (3.5-5.0) g/dL Urine Ketones (Negative) Chest x-ray: report reviewed Assessment and Plan (1) Breast CA Current Visit: Yes Status: Acute Priority: Medium Code(s): C50.919 - M ALIGNANT NEOPLASM OF UNSP SITE OF UNSPECIFIED FEMALE BREAST SNOMED Code(s): 084949295 (2) Neutropenic fever Current Visit: Yes Status: Acute Priority: High Code(s): D70.9 - NEUTROPENIA, UNSPECIFIED; R50.81 - FEVER PRESENTING WITH CONDITIONS CLASSIFIED ELSEWHERE SNOMED Code(s): 782321733 (3) Pancytopenia Current Visit: Yes Status: Acute Priority: High Code(s): D61.818 - OTHER PANCYTOPENIA SNOMED Code(s): 543892591 Plan: Neutropenic fever, pancytopenia secondary to chemotherapy - Today WBC 0.29, hemoglobin 7, hematocrit 21.3, platelets 8000. As would be expected 8 days from chemotherapy. Patient is in her chemo april -G-CSF given on 08/24. Her white count will begin to increase over the next 1 to 3 days. No additional G-CSF at this time. - 1 unit irradiated single donor platelets for platelet count of 8000. Transfuse for platelets less than 10,000 or if symptomatic. No aspirin, NSAIDs, anticoagulation. SCDs for DVT prophylaxis - Hemoglobin of 7, transfuse for hemoglobin less than 7 unless patient is symptomatic. -CBC daily while inpatient.Transfusions as needed Breast cancer - Diagnosis and treatment as documented in HPI - Patient has completed neoadjuvant treatment. There are plans for surgery in mid September. Aggressive supportive care Doctor attests: I performed a history and physical examination of this patient, developed impression and plan of care. Discussed with dictator. I agree with dictators note, documented as a scribe.
[2024-09-01] MEDS: SALT AND SODA MOUTHWASH 1,000 ML PO SCH (22:20)
[2024-09-02 06:13] LABS: HCT 22.7 % (37.2-46.3); HGB 7.3 g/dL (12.0-15.0); MCH 30.9 pg (27.0-32.0); MCHC 32.2 g/dL (32.0-37.0); MCV 96.2 fL (80.0-97.0); RBC 2.36 10*6/uL (4.10-5.20)
[2024-09-02 06:19] LABS: Platelet Count 17 10*3/uL (140-440); WBC 0.41 10*3/uL (4.50-10.00)
[2024-09-02 06:41] LABS: African American GFR (CKD) >90 (>60 ml/min/1.73 sqM); Anion Gap 6 mmol/L; Blood Urea Nitrogen <2 mg/dL (7-17); Calcium 8.5 mg/dL (8.4-10.2); Carbon Dioxide 22 mmol/L (22-30); Chloride 103 mmol/L (98-107); Glucose 82 mg/dL (74-99); Non-African American GFR(CKD) >90 (>60 ml/min/1.73 sqM); Potassium 3.2 mmol/L (3.5-5.1); Sodium 131 mmol/L (137-145)
[2024-09-02] MEDS: POTASSIUM CHLORIDE ER 20 MEQ TAB.ER PO SCH ×2 (09:52→20:12)
--- NOTE | 2024-09-02 13:06 | P.PN ---
Subjective Progress Note Date: 09/02/24 History of present illness; Patient is a 33-year-old female with bilateral breast cancer who follows with Arvind Lira who presents with a fever. Patient received her last chemotherapy last Friday the . On Friday she went into her oncology office and received a liter of fluid. They checked her blood counts and found that her blood counts were low but she did not require transfusion. She also began to have elevated temperature and rigors for which she took Tylenol, which gave her some short-term relief. Yesterday morning morning she continued to have a high temp. She denies any other symptoms. Does admit to mild dysuria. Patient reports absence of chest pain, palpitations, dyspnea, cough, abdominal pain, nausea, vomiting, constipation, diarrhea, dizziness, and headache. 09/02/2024 Patient seen and examined. Overnight she continued to have fever with max temperature 102.8 overnight. This morning she is afebrile. Awaiting cultures. She is asymptomatic. She has been seen and seen by oncology. REVIEW OF SYSTEMS: Pertinent positives and negatives noted in HPI. PHYSICAL EXAMINATION: Vitals reviewed GENERAL: Resting comfortably in bed. Obese. EYES: PERRL, no scleral injection or icterus. No vision loss HENT: Normocephalic, atraumatic, hearing grossly intact, moist mucous membranes NECK: No tracheal deviation, full range of motion. CARDIOVASCULAR: S1 and S2 present. No murmurs, rubs, or gallops. PULMONARY: Chest is clear to auscultation, no wheezing, rhonchi, or crackles. ABDOMEN: Soft, nontender, nondistended. No palpable organomegaly. MUSCULOSKELETAL: No apparent joint swelling and deformities. EXTREMITIES: No apparent cyanosis, clubbing. No pedal edema. NEUROLOGICAL: Alert and oriented. Gross neurological examination with no apparent focal deficits. SKIN: No apparent rashes. Significant findings: Labs WBC 0.41, hemoglobin 7.3, platelets 17, sodium 131, potassium 3.2, creatinine 0.4 Assessment and Plan: In summary, Patient is a 33-year-old female with bilateral breast cancer who follows with Dr. Lira who presents with a fever. # Neutropenic fever #Bilateral breast cancer #Leukocytopenia with neutropenia Blood cultures ordered UA and chest x-ray negative Continue cefepime 2 g daily Acetaminophen 650 mg every 6 hours as needed for fever Supportive care with cool packs as needed Monitor CBC #Thrombocytopenia due to cancer treatment #Normocytic anemia Platelets given Transfuse RBC if hemoglobin less than 7.0 Monitor CBC #Hypokalemia Given potassium chloride Monitor BMP Chronic Medical Conditions #Hypothyroidism Resume home medication DVT ppx: SCDs Code status: Full code F: PO E: Replete potassium N: Regular diet A: Ambulatory Anticipated discharge place: Home Anticipated discharge time: [address] [place] seen patient with resident, present during exam, and agreed with findings. Dictation was produced using [employer] dictation software. Please excuse any grammatical, word or spelling errors. Objective - Vital Signs Vital signs: Vital Signs Temp 98.8 F 09/02/24 12:47 Pulse 99 09/02/24 07:02 Resp 18 09/02/24 07:02 BP 106/67 09/02/24 07:02 Pulse Ox 100 09/02/24 07:02 FiO2 Intake & Output 09/01/24 09/02/24 09/02/24 18:59 06:59 18:59 Intake Total 299 Balance 299 Weight 88.904 kg Intake: Blood Product 299 Platelet Pheresis Pas 299 Psoralen Unit [id number] Other: Voiding Method Toilet # Voids 1 3 # Bowel Movements 1 - Labs CBC & Chem 7: 09/02/24 05:32 09/02/24 05:32 Labs: Abnormal Lab Results - Last 24 Hours (Table) 09/02/24 09/02/24 Range/Units 05:32 05:32 WBC 0.41 L* (4.50-10.00) 10*3/uL RBC 2.36 L (4.10-5.20) 10*6/uL Hgb 7.3 L (12.0-15.0) g/dL Hct 22.7 L (37.2-46.3) % RDW 15.0 H (11.5-14.5) % Plt Count 17 L* (140-440) 10*3/uL Sodium 131 L (137-145) mmol/L Potassium 3.2 L (3.5-5.1) mmol/L BUN <2 L (7-17) mg/dL Creatinine 0.40 L (0.52-1.04) mg/dL Microbiology - Last 24 Hours (Table) 08/31/24 16:09 Blood Culture - Preliminary Blood
[2024-09-02] MEDS: LOPERAMIDE 2 MG CAP PO STA (15:17)
--- NOTE | 2024-09-02 15:42 | P.PN ---
Subjective Progress Note Date: 09/02/24 Principal diagnosis: Febrile neutropenia, recent completion of neoadjuvant treatment for triple negative breast cancer In follow-up today patient continues to have intermittent fevers, Tmax 102.8 Fahrenheit since yesterday. She denies headaches, dizziness, oral irritation, nausea, vomiting, cough, chest pain or palpitations, abdominal pain or bloating, she is having diarrhea and requesting something for control of the same, no dysuria or hematuria, no bleeding to report. Patient states she feels better today than yesterday. Objective - Vital Signs Vital signs: Vital Signs Temp 99.2 F 09/02/24 14:34 Pulse 99 09/02/24 07:02 Resp 18 09/02/24 07:02 BP 106/67 09/02/24 07:02 Pulse Ox 100 09/02/24 07:02 FiO2 Intake & Output 09/01/24 09/02/24 09/02/24 18:59 06:59 18:59 Intake Total 299 Balance 299 Weight 88.904 kg Intake: Blood Product 299 Platelet Pheresis Pas 299 Psoralen Unit [id number] Other: Voiding Method Toilet # Voids 1 3 # Bowel Movements 1 - Constitutional General appearance: Present: average body habitus, cooperative, no acute dist ress - EENT Eyes: Present: anicteric sclerae, EOMI ENT: Present: hearing grossly normal, normal oropharynx - Respiratory Details: Respirations even, unlabored at rest - Cardiovascular Details: Skin warm, dry to the touch, well-perfused, radial pulse mild tachycardia regular rhythm - Peripheral edema leg Peripheral Edema: bilateral: None - Gastrointestinal General gastrointestinal: Present: normal bowel sounds, soft. Absent: absent bowel sounds, decreased bowel sounds, distended, hepatomegaly, hyperactive bowel sounds, organomegaly, rigid, scaphoid, splenomegaly, tenderness, umbilical hernia, ventral hernia - Integumentary Integumentary: Present: normal - Neurologic Neurologic: Present: CNII-XII intact - Musculoskeletal Musculoskeletal: Present: strength equal bilaterally - Psychiatric Psychiatric: Present: A&O x's 3, appropriate affect, intact judgment & insight - Labs CBC & Chem 7: 09/02/24 05:32 09/02/24 05:32 Labs: Abnormal Lab Results - Last 24 Hours (Table) 09/02/24 09/02/24 Range/Units 05:32 05:32 WBC 0.41 L* (4.50-10.00) 10*3/uL RBC 2.36 L (4.10-5.20) 10*6/uL Hgb 7.3 L (12.0-15.0) g/dL Hct 22.7 L (37.2-46.3) % RDW 15.0 H (11.5-14.5) % Plt Count 17 L* (140-440) 10*3/uL Sodium 131 L (137-145) mmol/L Potassium 3.2 L (3.5-5.1) mmol/L BUN <2 L (7-17) mg/dL Creatinine 0.40 L (0.52-1.04) mg/dL Microbiology - Last 24 Hours (Table) 08/31/24 16:09 Blood Culture - Preliminary Blood Assessment and Plan (1) Breast CA Current Visit: Yes Status: Acute Priority: Medium Code(s): C50.919 - MALIGNANT NEOPLASM OF UNSP SITE OF UNSPECIFIED FEMALE BREAST SNOMED Code(s): 383521578 (2) Neutropenic fever Current Visit: Yes Status: Acute Priority: High Code(s): D70.9 - NEUTROPENIA, UNSPECIFIED; R50.81 - FEVER PRESENTING WITH CONDITIONS CLASSIFIED ELSEWHERE SNOMED Code(s): 742947055 (3) Pancytopenia Current Visit: Yes Status: Acute Priority: High Code(s): D61.818 - OTHER PANCYTOPENIA SNOMED Code(s): 165523014 Plan: Neutropenic fever, pancytopenia secondary to chemotherapy - Today WBCs have nearly doubled at 0.41, hemoglobin 7.3, platelets 17,000. As would be expected 9 days from chemotherapy. Patient is in her chemo april. Would anticipate WBCV/ANC recovery in the next 24-48 hours. Hgb and plt will ta ke a little longer but, should continue to trend upward -G-CSF given on 08/24. Her white count will begin to increase over the next 1 to 2 days. No additional G-CSF at this time. - 1 unit irradiated single donor platelets was given for platelet count of 8000, plt 17,000 today. Transfuse for platelets less than 10,000 or if symptomatic. No aspirin, NSAIDs, anticoagulation. SCDs for DVT prophylaxis - Hemoglobin of 7, transfuse for hemoglobin less than 7 unless patient is symptomatic. -CBC daily while inpatient. Transfusions if needed Breast cancer - Diagnosis and treatment as documented in consult - Patient has completed neoadjuvant treatment. There are plans for surgery in mid September. Diarrhea -Likely 2/2 low WBC and medications -c-diff ordered -questran QID, imodium PRN Aggressive supportive care continue
--- NOTE | 2024-09-02 16:38 | CDI ---
Date: 09/02/2024 From: Mercy [email or web address] Email: [email or web address] Admit Date: 08/31/2024 08:04:00 PM Patient Name: Anabelle Russell Visit Number: [id number] Discharge Date: N/A ATTENTION: The Clinical Documentation Specialists (CDI) and [facility] Coding Staff appreciate your assistance in clarifying documentation. Please respond to the clarification below the line at the bottom and electronically sign. The CDI & [facility] Coding staff will review the response and follow-up if needed. Please note: Queries are made part of the Legal Health Record. If you have any questions, please contact the author of this message via ITS. Dr. Vinita Montana, Your patient has an abnormal lab values reported: Serum Sodium (see details below). Please clarify if there is an additional diagnosis and/or clinical significance related to this value. History/Risk Factors: 33-year-old female presented to [facility] ED for evaluation due to an elevated temperature and rigors. PMH: Bilateral breast cancer (received last chemotherapy treatment 08/23/2024), GERD, anxiety Clinical indicators: Documentation Location: Electronic Medical Record Lab Trend: 08/31/2024 09/01/2024 09/02/2024 Serum Sodium Level 131 134 134 Treatment: Pertinent Labs Monitored with Trend 0.9% Sodium Chloride IV Infusion @ 130ml/hr. 0.9% Sodium Chloride IV Bolus x 1 Liter Is there an additional diagnosis and/or clinical significance related to the above lab results/information? [ ] Hyponatremia [ ] No additional diagnosis/Not clinically significant [ ] Other, please specify [ ] Unable to determine Query answered in Discharge Summary Report on 09/06/2024: "Hyponatremia, hypovolemic" <Electronically signed by Manoj Still MD> 09/06/24 1551 <Electronically signed by Vinita Montana MD>09/07/24 1016 [email or web address]
[2024-09-02] MEDS: CHOLESTYRAMINE (WITH SUGAR) 4 GM PACKET PO SCH (17:11)
[2024-09-02] MEDS ORDERED: Potassium Replacement Protocol 1 EACH MISC MISCELLANE PRN (19:55)
[2024-09-03 05:27] LABS: HCT 22.2 % (37.2-46.3); HGB 7.3 g/dL (12.0-15.0); Immature Platelet Fraction 6.2 % (1.1-6.1); MCH 31.3 pg (27.0-32.0); MCHC 32.9 g/dL (32.0-37.0); MCV 95.3 fL (80.0-97.0); RBC 2.33 10*6/uL (4.10-5.20); RDW 14.9 % (11.5-14.5)
[2024-09-03 05:40] LABS: African American GFR (CKD) >90 (>60 ml/min/1.73 sqM); Anion Gap 8 mmol/L; Blood Urea Nitrogen <2 mg/dL (7-17); Calcium 8.8 mg/dL (8.4-10.2); Carbon Dioxide 21 mmol/L (22-30); Chloride 103 mmol/L (98-107); Glucose 103 mg/dL (74-99); Non-African American GFR(CKD) >90 (>60 ml/min/1.73 sqM); Platelet Count 17 10*3/uL (140-440); Potassium 3.6 mmol/L (3.5-5.1); Sodium 132 mmol/L (137-145); WBC 0.68 10*3/uL (4.50-10.00)
[2024-09-03 05:41] LABS: Mean Platelet Volume 6.2 fL (9.5-12.2)
[2024-09-03 06:14] LABS: Ovalocytes Present; Tear Drop Cells Present
[2024-09-03] MEDS: POTASSIUM CHLORIDE ER 20 MEQ TAB.ER PO SCH (08:12)
[2024-09-03] MEDS: SODIUM CHLORIDE 0.9% 500 ML 500 ML IV ONE (09:11)
[2024-09-03] MEDS: LOPERAMIDE 2 MG CAP PO PRN (09:19)
--- NOTE | 2024-09-03 13:25 | P.PN ---
Subjective Progress Note Date: 09/03/24 History of present illness; Patient is a 33-year-old female with bilateral breast cancer who follows with Arvind Lira who presents with a fever. Patient received her last chemotherapy last Friday the . On Friday she went into her oncology office and received a liter of fluid. They checked her blood counts and found that her blood counts were low but she did not require transfusion. She also began to have elevated temperature and rigors for which she took Tylenol, which gave her some short-term relief. Yesterday morning morning she continued to have a high temp. She denies any other symptoms. Does admit to mild dysuria. Patient reports absence of chest pain, palpitations, dyspnea, cough, abdominal pain, nausea, vomiting, constipation, diarrhea, dizziness, and headache. 09/02/2024 Patient seen and examined. Overnight she continued to have fever with max temperature 102.8 overnight. This morning she is afebrile. Awaiting cultures. She is asymptomatic. She has been seen and seen by oncology. 09/03/2024 Patient seen and examined. Overnight she continued to have fever with max temperature 103.1 overnight, this morning she has mild fever of 99.7 Fahrenheit. Blood culture no growth thus far. She is asymptomatic. She has been seen and seen by oncology. REVIEW OF SYSTEMS: Pertinent positives and negatives noted in HPI. PHYSICAL EXAMINATION: Vitals reviewed GENERAL: Resting comfortably in bed. Obese. EYES: PERRL, no scleral injection or icterus. No vision loss HENT: Normocephalic, atraumatic, hearing grossly intact, moist mucous membranes NECK: No tracheal deviation, full range of motion. CARDIOVASCULAR: S1 and S2 present. No murmurs, rubs, or gallops. PULMONARY: Chest is clear to auscultation, no wheezing, rhonchi, or crackles. ABDOMEN: Soft, nontender, nondistended. No palpable organomegaly. MUSCULOSKELETAL: No apparent joint swelling and deformities. EXTREMITIES: No apparent cyanosis, clubbing. No pedal edema. NEUROLOGICAL: Alert and oriented. Gross neurological examination with no apparent focal deficits. SKIN: No apparent rashes. Significant findings: Labs WBC 0.41, hemoglobin 7.3, platelets 17, sodium 131, potassium 3.2, creatinine 0.4 Blood culture with no growth thus far Assessment and Plan: In summary, Patient is a 33-year-old female with bilateral breast cancer who follows with Dr. Lira who presents with a fever. # Neutropenic fever #Bilateral breast cancer #Leukocytopenia with neutropenia Blood cultures pending Continue cefepime 2 g daily Acetaminophen 650 mg every 6 hours as needed for fever Supportive care with cool packs as needed Monitor CBC #Thrombocytopenia due to cancer treatment #Normocytic anemia Platelets given Transfuse RBC if hemoglobin less than 7.0 Monitor CBC #Hypokalemia Given potassium chloride Monitor BMP #Hyponatremia, hypovolemic, likely due to dehydration Initially 131 Given IV bolus Monitor BMP Chronic Medical Conditions #Hypothyroidism Resume home medication DVT ppx: SCDs Code status: Full code F: PO E: Replete potassium N: Regular diet A: Ambulatory Anticipated discharge place: Home Anticipated discharge time: [address] [place] seen patient with resident, present during exam, and agreed with findings. Dictation was produced using [employer] dictation software. Please excuse any grammatical, word or spelling errors. Objective - Vital Signs Vital signs: Vital Signs Temp 98 F 09/03/24 07:20 Pulse 101 H 09/03/24 07:20 Resp 18 09/03/24 07:20 BP 95/59 09/03/24 07:20 Pulse Ox 100 09/03/24 07:20 FiO2 Intake & Output 09/02/24 09/03/24 09/03/24 18:59 06:59 18:59 Other: # Voids 2 1 # Bowel Movements 1 - Labs CBC & Chem 7: 09/03/24 05:04 09/03/24 05:04 Labs: Abnormal Lab Results - Last 24 Hours (Table) 09/03/24 09/03/24 Range/Units 05:04 05:04 WBC 0.68 L* (4.50-10.00) 10*3/uL RBC 2.33 L (4.10-5.20) 10*6/uL Hgb 7.3 L (12.0-15.0) g/dL Hct 22.2 L (37.2-46.3) % RDW 14.9 H (11.5-14.5) % Plt Count 17 L* (140-440) 10*3/uL MPV 6.2 L (9.5-12.2) fL Immature Plt Fraction 6.2 H (1.1-6.1) % Sodium 132 L (137-145) mmol/L Carbon Dioxide 21 L (22-30) mmol/L BUN <2 L (7-17) mg/dL Creatinine 0.39 L (0.52-1.04) mg/dL Glucose 103 H (74-99) mg/dL Microbiology - Last 24 Hours (Table) 08/31/24 16:09 Blood Culture - Preliminary Blood
[2024-09-03] MEDS: POTASSIUM CHLORIDE ER 20 MEQ TAB.ER PO STA (14:02)
[2024-09-03] MEDS: FILGRASTIM-SNDZ 480 MCG/0.8 ML SYRINGE SQ SCH (18:38)
--- NOTE | 2024-09-03 18:44 | P.PN ---
Subjective Progress Note Date: 09/03/24 No acute events. Afebrile this morning. Continues Cefepime. Diarrhea improving. Denies abd pain, tolerating oral intake. WBC slowly improving, today 680. Will add Granix daily with goal of ANC > 1000 Objective - Vital Signs Vital signs: Vital Signs Temp 99.8 F H 09/03/24 11:58 Pulse 101 H 09/03/24 07:20 Resp 18 09/03/24 07:20 BP 95/59 09/03/24 07:20 Pulse Ox 100 09/03/24 07:20 FiO2 Intake & Output 09/02/24 09/03/24 09/03/24 18:59 06:59 18:59 Other: # Voids 2 1 # Bowel Movements 1 - Constitutional General appearance: Present: average body habitus, no acute distress - EENT Eyes: Present: anicteric sclerae, EOMI ENT: Present: hearing grossly normal - Respiratory Details: breathing is even and unlabored - Cardiovascular Details: skin warm and dry - Gastrointestinal General gastrointestinal: Present: soft. Absent: tenderness - Integumentary Integumentary: Absent: cyanotic, jaundiced - Musculoskeletal Musculoskeletal: Present: strength equal bilaterally - Psychiatric Psychiatric: Present: A&O x's 3 - Labs CBC & Chem 7: 09/03/24 05:04 09/03/24 05:04 Labs: Abnormal Lab Results - Last 24 Hours (Table) 09/03/24 09/03/24 Range/Units 05:04 05:04 WBC 0.68 L* (4.50-10.00) 10*3/uL RBC 2.33 L (4.10-5.20) 10*6/uL Hgb 7.3 L (12.0-15.0) g/dL Hct 22.2 L (37.2-46.3) % RDW 14.9 H (11.5-14.5) % Plt Count 17 L* (140-440) 10*3/uL MPV 6.2 L (9.5-12.2) fL Immature Plt Fraction 6.2 H (1.1-6.1) % Sodium 132 L (137-145) mmol/L Carbon Dioxide 21 L (22-30) mmol/L BUN <2 L (7-17) mg/dL Creatinine 0.39 L (0.52-1.04) mg/dL Glucose 103 H (74-99) mg/dL Microbiology - Last 24 Hours (Table) 08/31/24 16:09 Blood Culture - Preliminary Blood Assessment and Plan (1) Breast CA Current Visit: Yes Status: Acute Priority: Medium Code(s): C50.919 - MALIGNANT NEOPLASM OF UNSP SITE OF UNSPECIFIED FEMALE BREAST SNOMED Code(s): 646174733 (2) Neutropenic fever Current Visit: Yes Status: Acute Priority: High Code(s): D70.9 - NEUTROPENIA, UNSPECIFIED; R50.81 - FEVER PRESENTING WITH CONDITIONS CLASSIFIED ELSEWHERE SNOMED Code(s): 054084949 (3) Pancytopenia Current Visit: Yes Status: Acute Priority: High Code(s): D61.818 - OTHER PANCYTOPENIA SNOMED Code(s): 104125194 Plan: Neutropenic fever, pancytopenia secondary to chemotherapy - Patient is in her chemo april. - Hgb 7.3, plt 17,000, WBC 680 - G-CSF given on 08/24. She is day 11 s/p G-CSF. Will add Granix daily, with goal of ANC > 1,000 - No reported episodes of acute bleeding. Continue to monitor - CBC daily while inpatient. Transfuse for hgb less than 7 and for platelets less than 10,000 or if symptomatic. No aspirin, NSAIDs, anticoagulation. SCDs for DVT prophylaxis Breast cancer - Diagnosis and treatment as documented in consult - Patient has completed neoadjuvant treatment. There are plans for surgery in mid September. Diarrhea -Likely 2/2 low WBC and medications -C-diff ordered -questran QID, imodium PRN. Diarrhea improving Doctor attests: I performed a history and physical examination of this patient, developed impression and plan of care. Discussed with dictator. I agree with dictators note, documented as a scribe.
[2024-09-03] MEDS: OLANZapine 2.5 MG TAB PO SCH (19:44)
[2024-09-04 05:56] LABS: HCT 21.7 % (37.2-46.3); HGB 7.3 g/dL (12.0-15.0); Immature Platelet Fraction 5.8 % (1.1-6.1); MCH 31.7 pg (27.0-32.0); MCHC 33.6 g/dL (32.0-37.0); MCV 94.3 fL (80.0-97.0); RDW 14.9 % (11.5-14.5)
[2024-09-04 06:04] LABS: Platelet Count 27 10*3/uL (140-440); WBC 1.38 10*3/uL (4.50-10.00)
[2024-09-04 06:07] LABS: African American GFR (CKD) >90 (>60 ml/min/1.73 sqM); Anion Gap 5 mmol/L; Blood Urea Nitrogen <2 mg/dL (7-17); Calcium 8.9 mg/dL (8.4-10.2); Carbon Dioxide 24 mmol/L (22-30); Chloride 104 mmol/L (98-107); Glucose 90 mg/dL (74-99); Non-African American GFR(CKD) >90 (>60 ml/min/1.73 sqM); Potassium 3.9 mmol/L (3.5-5.1); Sodium 133 mmol/L (137-145)
[2024-09-04 06:43] LABS: Band Neutrophils % 3 %; Eosinophils # (M) 0.01 k/uL (0-0.7); Lymphocytes # (M) 0.25 k/uL (1.0-4.8); Monocytes # (M) 0.01 k/uL (0-1.0); Neutrophils % (M) 77 %; Nucleated Red Blood Cells 0 /100 WBC (0-0); Total Cells Counted 100
[2024-09-04] MEDS: POTASSIUM CHLORIDE ER 20 MEQ TAB.ER PO SCH (07:53)
[2024-09-04] MEDS: SODIUM CHLORIDE 0.9% 500 ML 500 ML IV ONE (10:02)
--- NOTE | 2024-09-04 14:40 | P.PN ---
Subjective Progress Note Date: 09/04/24 History of present illness; Patient is a 33-year-old female with bilateral breast cancer who follows with Arvind Lira who presents with a fever. Patient received her last chemotherapy last Friday the . On Friday she went into her oncology office and received a liter of fluid. They checked her blood counts and found that her blood counts were low but she did not require transfusion. She also began to have elevated temperature and rigors for which she took Tylenol, which gave her some short-term relief. Yesterday morning morning she continued to have a high temp. She denies any other symptoms. Does admit to mild dysuria. Patient reports absence of chest pain, palpitations, dyspnea, cough, abdominal pain, nausea, vomiting, constipation, diarrhea, dizziness, and headache. 09/02/2024 Patient seen and examined. Overnight she continued to have fever with max temperature 102.8 overnight. This morning she is afebrile. Awaiting cultures. She is asymptomatic. She has been seen and seen by oncology. 09/03/2024 Patient seen and examined. Overnight she continued to have fever with max temperature 103.1 overnight, this morning she has mild fever of 99.7 Fahrenheit. Blood culture no growth thus far. She is asymptomatic. She has been seen and seen by oncology. 09/04/2024 Patient seen and examined. Overnight she continued to have fever with max temperature 100.6 yesterday evening, this morning shows temperature of 98.8 Fahrenheit. Blood culture no growth thus far. She is asymptomatic. Will await final cultures and oncology recommendations for discharge. REVIEW OF SYSTEMS: Pertinent positives and negatives noted in HPI. PHYSICAL EXAMINATION: Vitals reviewed GENERAL: Resting comfortably in bed. Obese. EYES: PERRL, no scleral injection or icterus. No vision loss HENT: Normocephalic, atraumatic, hearing grossly intact, moist mucous membranes NECK: No tracheal deviation, full range of motion. CARDIOVASCULAR: S1 and S2 present. No murmurs, rubs, or gallops. PULMONARY: Chest is clear to auscultation, no wheezing, rhonchi, or crackles. ABDOMEN: Soft, nontender, nondistended. No palpable organomegaly. MUSCULOSKELETAL: No apparent joint swelling and deformities. EXTREMITIES: No apparent cyanosis, clubbing. No pedal edema. NEUROLOGICAL: Alert and oriented. Gross neurological examination with no apparent focal deficits. SKIN: No apparent rashes. Significant findings: Labs WBC 1.38, hemoglobin 7.3, platelets 27, sodium 133, potassium 3.9 Blood culture with no growth thus far Assessment and Plan: In summary, Patient is a 33-year-old female with bilateral breast cancer who follows with Dr. Lira who presents with a fever. #Neutropenic fever #Bilateral breast cancer # Pancytopenia Blood cultures pending Continue cefepime 2 g every 8 hours Acetaminophen 650 mg every 6 hours as needed for fever Supportive care with cool packs as needed Monitor CBC #Thrombocytopenia due to cancer treatment #Normocytic anemia Platelets given Transfuse RBC if hemoglobin less than 7.0 Monitor CBC #Hypokalemia, resolved Given potassium chloride Monitor BMP #Hyponatremia, hypovolemic, likely due to dehydration, improving Initially 131 Given IV bolus Monitor BMP Chronic Medical Conditions #Hypothyroidism Resume home medication DVT ppx: SCDs Code status: Full code F: PO E: Replete potassium N: Regular diet A: Ambulatory Anticipated discharge place: Home Anticipated discharge time: [address] Morocho seen patient with resident, present during exam, and agreed with findings. Dictation was produced using [employer] dictation software. Please excuse any grammatical, word or spelling errors. Objective - Vital Signs Vital signs: Vital Signs Temp 98.8 F 09/04/24 07:19 Pulse 105 H 09/04/24 07:19 Resp 19 09/04/24 07:19 BP 103/64 09/04/24 07:19 Pulse Ox 99 09/04/24 07:19 FiO2 Intake & Output 09/03/24 09/04/24 09/04/24 18:59 06:59 18:59 Intake Total 700 560 Balance 700 560 Intake: Intake, IV Titration 700 200 Amount Cefepime 2 gm In Dextrose 200 200 5% in Water 100 ml @ 25 mls/hr IVPB Q8H [facility] Rx#: [id number] Sodium Chloride 0.9% 500 500 ml 500 ml @ 999 mls/hr IV .Q31M [facility] Rx#:[id number] Oral 360 Other: Voiding Method Toilet # Voids 1 - Labs CBC & Chem 7: 09/04/24 05:44 09/04/24 05:44 Labs: Abnormal Lab Results - Last 24 Hours (Table) 09/04/24 09/04/24 Range/Units 05:44 05:44 WBC 1.38 L* (4.50-10.00) 10*3/uL RBC 2.30 L (4.10-5.20) 10*6/uL Hgb 7.3 L (12.0-15.0) g/dL Hct 21.7 L (37.2-46.3) % RDW 14.9 H (11.5-14.5) % Plt Count 27 L D (140-440) 10*3/uL Immature Gran # 0.06 H (0.00-0.04) 10*3/uL Neutrophils # (Manual) 1.10 L (1.3-7.7) k/uL Lymphocytes # (Manual) 0.25 L (1.0-4.8) k/uL Sodium 133 L (137-145) mmol/L BUN <2 L (7-17) mg/dL Creatinine 0.36 L (0.52-1.04) mg/dL Microbiology - Last 24 Hours (Table) 08/31/24 16:09 Blood Culture - Preliminary Blood
--- NOTE | 2024-09-04 14:43 | P.PN ---
Progress Note - Text Progress Note Date: 09/04/24 Ms. Russell is a very pleasant 33-year-old female with an unfortunate history of breast cancer, on chemotherapy who is here for neutropenic fever. She has continued to be severely neutropenic despite receiving Neulasta, and was started on Neupogen biosimilar. WBC slightly improved today however continues to be severely neutropenic with a slightly improved ANC. Also continues to have severe thrombocytopenia and anemia. Hemoglobin has been stable around 7.3, and platelets starting to improve now at 27 from 10's. - Continue to monitor CBC very closely. - Continue G-CSF. - Supportive transfusion to maintain hemoglobin above 7 and platelets above 15 - Antibiotics as per ID - Continue supportive care Discussed with patient she is agreeable to this plan. All of her questions were answered.
[2024-09-05 10:08] LABS: HCT 22.2 % (37.2-46.3); HGB 7.1 g/dL (12.0-15.0); Immature Platelet Fraction 9.3 % (1.1-6.1); MCH 30.7 pg (27.0-32.0); MCV 96.1 FL (80.0-97.0); NRBC Per 100 WBC 0 X 10*3/uL (0.00-0.01); Platelet Count 35 X 10*3/uL (140-440); RBC 2.31 X 10*6/uL (4.10-5.20); RDW 15.3 % (11.5-14.5); WBC 3.06 X 10*3/uL (4.50-10.00)
[2024-09-05 10:24] LABS: BUN/Creat Ratio <8.75 Ratio (12.00-20.00); Blood Urea Nitrogen <3.5 mg/dL (9.0-27.0); Calcium 8.4 mg/dL (8.7-10.3); Carbon Dioxide 22.4 mmol/L (21.6-31.8); Chloride 103 mmol/L (96-109); Glucose 91 mg/dL (70-110); Potassium 3.5 mmol/L (3.5-5.5); Sodium 136 mmol/L (135-145)
[2024-09-05 10:32] LABS: Basophils # (M) 0.03 X 10*3/uL (0.00-0.10); Eosinophils # (M) 0 X 10*3/uL (0.04-0.35); Lymphocytes # (M) 0.43 X 10*3/uL (0.90-5.00); Metamyelocytes % 1 % (0-0); Monocytes # (M) 0.18 X 10*3/uL (0.20-1.00); Neutrophils # (M) 2.39 X 10*3/uL (1.80-7.70); Neutrophils % (M) 78 %
[2024-09-05] MEDS: POTASSIUM CHLORIDE ER 20 MEQ TAB.ER PO STA (11:51)
[2024-09-05] MEDS: diphenhydrAMINE 25 MG CAP PO PRN (20:01)
--- NOTE | 2024-09-05 22:12 | P.PN ---
Subjective Progress Note Date: 09/05/24 Patient is a 33-year-old female with bilateral breast cancer who follows with Dr. Lira who presents with a fever. Patient received her last chemotherapy last Friday the . On Friday she went into her oncology office and received a liter of fluid. They checked her blood counts and found that her blood counts were low but she did not require transfusion. She also began to have elevated temperature and rigors for which she took Tylenol, which gave her some short-term relief. Yesterday morning morning she continued to have a high temp. She denies any other symptoms. Does admit to mild dysuria. Patient reports absence of chest pain, palpitations, dyspnea, cough, abdominal pain, nausea, vomiting, constipation, diarrhea, dizziness, and headache. 09/02/2024 Patient seen and examined. Overnight she continued to have fever with max temperature 102.8 overnight. This morning she is afebrile. Awaiting cultures. She is asymptomatic. She has been seen and seen by oncology. 09/03/2024 Patient seen and examined. Overnight she continued to have fever with max temperature 103.1 overnight, this morning she has mild fever of 99.7 Fahrenheit. Blood culture no growth thus far. She is asymptomatic. She has been seen and seen by oncology. 09/04/2024 Patient seen and examined. Overnight she continued to have fever with max temperature 100.6 yesterday evening, this morning shows temperature of 98.8 Fahrenheit. Blood culture no growth thus far. She is asymptomatic. Will await final cultures and oncology recommendations for discharge. 09/05/2024 Patient is resting in the bed. No complaints of chest pain or shortness of breath. Patient has been afebrile overnight. Tmax 100.0 today afternoon. Blood cultures negative as per final report. Laboratory data WBC improved to 3.0 hemoglobin 7.1 and platelets 35. BUN 3.5 and creatinine 0.4 and calcium 8.4. Patient's antibiotics in the form of cefepime. Oncology is on board. PHYSICAL EXAMINATION: Vitals reviewed GENERAL: Resting comfortably in bed. Obese. EYES: PERRL, no scleral injection or icterus. No vision loss HENT: Normocephalic, atraumatic, hearing grossly intact, moist mucous membranes NECK: No tracheal deviation, full range of motion. CARDIOVASCULAR: S1 and S2 present. No murmurs, rubs, or gallops. PULMONARY: Chest is clear to auscultation, no wheezing, rhonchi, or crackles. ABDOMEN: Soft, nontender, nondistended. No palpable organomegaly. MUSCULOSKELETAL: No apparent joint swelling and deformities. EXTREMITIES: No apparent cyanosis, clubbing. No pedal edema. NEUROLOGICAL: Alert and oriented. Gross neurological examination with no apparent focal deficits. SKIN: No apparent rashes. Significant findings: Labs WBC 1.38, hemoglobin 7.3, platelets 27, sodium 133, potassium 3.9 Blood culture with no growth thus far Assessment and Plan: In summary, Patient is a 33-year-old female with bilateral breast cancer who follows with Dr. Lira who presents with a fever. #Neutropenic fever #Bilateral breast cancer # Pancytopenia Blood cultures negative Continue cefepime 2 g every 8 hours Acetaminophen 650 mg every 6 hours as needed for fever Supportive care with cool packs as needed Continue to monitor for any fever. Tmax 100.0. #Thrombocytopenia due to cancer treatment #Normocytic anemia Platelets given Transfuse RBC if hemoglobin less than 7.0 Monitor CBC #Hypokalemia, resolved Given potassium chloride Monitor BMP #Hyponatremia, hypovolemic, likely due to dehydration, improving Initially 131 Given IV bolus Monitor BMP Chronic Medical Conditions #Hypothyroidism Resume home medication DVT ppx: SCDs Code status: Full code F: PO E: Replete potassium N: Regular diet A: Ambulatory Anticipated discharge place: Home Anticipated discharge time: 1 to 2 days Objective - Vital Signs Vital signs: Vital Signs Temp 98.7 F 09/05/24 19:20 Pulse 107 H 09/05/24 18:53 Resp 16 09/05/24 18:53 BP 100/64 09/05/24 18:53 Pulse Ox 96 09/05/24 18:53 FiO2 Intake & Output 09/05/24 09/05/24 09/06/24 06:59 18:59 06:59 Intake Total 200 1560 Balance 200 1560 Intake: Intake, IV Titration 200 Amount Cefepime 2 gm In Dextrose 200 5% in Water 100 ml @ 25 mls/hr IVPB Q8H [facility] Rx#: [id number] Oral 1560 Other: Voiding Method Toilet Toilet # Voids 2 5 # Bowel Movements 1 - Labs CBC & Chem 7: 09/05/24 04:25 09/05/24 04:25 Labs: Abnormal Lab Results - Last 24 Hours (Table) 09/05/24 09/05/24 Range/Units 04:25 04:25 WBC 3.06 L (4.50-10.00) X 10*3/uL RBC 2.31 L (4.10-5.20) X 10*6/uL Hgb 7.1 L (12.0-15.0) g/dL Hct 22.2 L (37.2-46.3) % RDW 15.3 H (11.5-14.5) % Plt Count 35 A* (140-440) X 10*3/uL Lymphocytes # (Manual) 0.43 L (0.90-5.00) X 10*3/uL Monocytes # (Manual) 0.18 L (0.20-1.00) X 10*3/uL Eosinophils # (Manual) 0 L (0.04-0.35) X 10*3/uL Immature Plt Fraction 9.3 H (1.1-6.1) % BUN <3.5 L (9.0-27.0) mg/dL Creatinine 0.4 L (0.6-1.5) mg/dL BUN/Creatinine Ratio <8.75 L (12.00-20.00) Ratio Calcium 8.4 L (8.7-10.3) mg/dL Microbiology - Last 24 Hours (Table) 08/31/24 16:09 Blood Culture - Final Blood
[2024-09-06 05:24] LABS: African American GFR (CKD) >90 (>60 ml/min/1.73 sqM); Anion Gap 4 mmol/L; Blood Urea Nitrogen <2 mg/dL (7-17); Calcium 9.1 mg/dL (8.4-10.2); Carbon Dioxide 27 mmol/L (22-30); Chloride 102 mmol/L (98-107); Glucose 87 mg/dL (74-99); Non-African American GFR(CKD) >90 (>60 ml/min/1.73 sqM); Potassium 3.8 mmol/L (3.5-5.1); Sodium 133 mmol/L (137-145)
[2024-09-06 05:36] LABS: Basophils # (A) 0.03 10*3/uL (0.00-0.10); Basophils % (A) 0.5 %; Eosinophils # (A) 0.02 10*3/uL (0.04-0.35); Eosinophils % (A) 0.4 %; HCT 22.1 % (37.2-46.3); HGB 7.2 g/dL (12.0-15.0); Lymphocytes # (A) 0.44 10*3/uL (0.90-5.00); Lymphocytes % (A) 7.9 %; MCH 31.3 pg (27.0-32.0); MCHC 32.6 g/dL (32.0-37.0); MCV 96.1 fL (80.0-97.0); Mean Platelet Volume 11.4 fL (9.5-12.2); Monocytes # (A) 0.37 10*3/uL (0.20-1.00); Monocytes % (A) 6.7 %; Neutrophils # (A) 4.35 10*3/uL (1.80-7.70); Neutrophils % (A) 78.2 %; RDW 15.4 % (11.5-14.5); WBC 5.56 10*3/uL (4.50-10.00)
[2024-09-06 05:38] LABS: Platelet Count 47 10*3/uL (140-440)
[2024-09-06 07:23] LABS: RBC Morphology Normal
[2024-09-06 07:45] VITALS: RESP 20
[2024-09-06] MEDS: SODIUM CHLORIDE 0.9% 500 ML 500 ML IV ONE (10:28)
[2024-09-06 13:01] VITALS: BP 91/59; PULSE 99; TEMP 98.6
--- NOTE | 2024-09-06 15:51 | P.DS ---
Providers Date of admission: 08/31/24 20:04 Expected date of discharge: 09/06/24 Attending physician: Rae Lo Consults: 08/31/24 20:01 Consult Physician Urgent Consulting Provider: Jarrett Lugo Consult Reason/Comments: neutropenic fever Do you want consulting provider notified?: Yes Primary care physician: Tommy Cuadra [place] Hospital Course: Discharge diagnoses; #Neutropenic fever #Bilateral breast cancer #Pancytopenia #Thrombocytopenia due to cancer treatment #Normocytic anemia #Hypokalemia #Hyponatremia, hypovolemic Hospital course; Patient is a 33-year-old female with bilateral breast cancer who follows with Dr. Lira who presents with a fever. Patient received her last chemotherapy last Friday the . On Friday she went into her oncology office and received a liter of fluid. They checked her blood counts and found that her blood counts were low but she did not require transfusion. She also began to have elevated temperature and rigors for which she took Tylenol, which gave her some short-term relief. Yesterday morning morning she continued to have a high temp. She denies any other symptoms. Does admit to mild dysuria. Patient reports absence of chest pain, palpitations, dyspnea, cough, abdominal pain, nausea, vomiting, constipation, diarrhea, dizziness, and headache. During stay patient being treated for neutropenic fever. Blood cultures resulted with no growth. She started on cefepime 2 g every 8 hours. Electrolytes were repleted. She did require daily 500 mL bolus of normal saline for hypovolemia. She was also started on GCSF and platelet transfusion and was started on Neulasta and switched to Neupogen bio similar. Patient discharged home in stable condition. She is to continue Ceftin 500 mg twice daily for 30 days. Important to maintain hydrated due to hypovolemia. Follow-up with oncology and PCP. PHYSICAL EXAMINATION: Vitals reviewed GENERAL: Resting comfortably in bed. Obese. EYES: PERRL, no scleral injection or icterus. No vision loss HENT: Normocephalic, atraumatic, hearing grossly intact, moist mucous membranes NECK: No tracheal deviation, full range of motion. CARDIOVASCULAR: S1 and S2 present. No murmurs, rubs, or gallops. PULMONARY: Chest is clear to auscultation, no wheezing, rhonchi, or crackles. ABDOMEN: Soft, nontender, nondistended. No palpable organomegaly. MUSCULOSKELETAL: No apparent joint swelling and deformities. EXTREMITIES: No apparent cyanosis, clubbing. No pedal edema. NEUROLOGICAL: Alert and oriented. Gross neurological examination with no appa rent focal deficits. SKIN: No apparent rashes. Dr. [place] seen patient with resident, present during exam, and agreed with findings. Dictation was produced using [employer] dictation software. please excuse any grammatical, word or spelling errors. Patient Condition at Discharge: Stable Plan - Discharge Summary Discharge Rx Participant: Yes New Discharge Prescriptions: New cefuroxime axetiL [Ceftin] 500 mg PO BID #6 tab Continue Prochlorperazine [Compazine] 5 mg PO BID@0730,1530 Omeprazole [PriLOSEC] 20 mg PO DAILY Thyroid,Pork [[place] Thyroid] 60 mg PO HS OLANZapine [ZyPREXA] 5 mg PO HS Discharge Medication List OLANZapine [ZyPREXA] 5 mg PO HS 08/31/24 [History] Omeprazole [PriLOSEC] 20 mg PO DAILY 08/31/24 [History] Prochlorperazine [Compazine] 5 mg PO BID@0730,1530 08/31/24 [History] Thyroid,Pork [[place] Thyroid] 60 mg PO HS 08/31/24 [History] cefuroxime axetiL [Ceftin] 500 mg PO BID #6 tab 09/06/24 [Rx] Follow up Appointment(s)/Referral(s): Jarrett Lugo MD [STAFF PHYSICIAN] - 09/15/24 10:15 am Tommy France [Primary Care Provider] - 1-2 days (The office is closed for lunch please call and make follow up appointment.) Patient Instructions/Handouts: Cefuroxime (By mouth), Neutropenia (DC) Activity/Diet/Wound Care/Special Instructions: Continue antibiotics for 3 days. Follow-up with oncology. Discharge Disposition: HOME SELF-CARE
--- NOTE | 2024-09-06 17:12 | P.PN ---
Subjective Progress Note Date: 09/06/24 No acute events, reporting feeling well. Continues to be afebrile. Continues Cefepime. Denies abd pain and n/v. Diarrhea improved. Tolerating oral intake. WBC now normal at 5.5, with ANC of 4.3 Objective - Vital Signs Vital signs: Vital Signs Temp 98.6 F 09/06/24 12:19 Pulse 99 09/06/24 12:19 Resp 20 09/06/24 12:19 BP 91/59 09/06/24 12:19 Pulse Ox 100 09/06/24 12:19 FiO2 Intake & Output 09/05/24 09/06/24 09/06/24 18:59 06:59 18:59 Intake Total 1560 590 Balance 1560 590 Intake: Oral 1560 590 Other: Voiding Method Toilet # Voids 5 2 # Bowel Movements 1 - Constitutional General appearance: Present: no acute distress - EENT Eyes: Present: anicteric sclerae, EOMI ENT: Present: hearing grossly normal - Respiratory Details: breathing is even and unlabored - Cardiovascular Details: skin warm and dry - Gastrointestinal General gastrointestinal: Present: soft. Absent: tenderness - Integumentary Integumentary: Absent: cellulitis, cyanotic, jaundiced - Neurologic Neurologic: Present: CNII-XII intact - Musculoskeletal Musculoskeletal: Present: strength equal bilaterally - Psychiatric Psychiatric: Present: A&O x's 3 - Labs CBC & Chem 7: 09/06/24 04:45 09/06/24 04:45 Labs: Abnormal Lab Results - Last 24 Hours (Table) 09/06/24 09/06/24 Range/Units 04:45 04:45 RBC 2.30 L (4.10-5.20) 10*6/uL Hgb 7.2 L (12.0-15.0) g/dL Hct 22.1 L (37.2-46.3) % RDW 15.4 H (11.5-14.5) % Plt Count 47 L D (140-440) 10*3/uL Immature Gran # 0.35 H (0.00-0.04) 10*3/uL Lymphocytes # 0.44 L (0.90-5.00) 10*3/uL Eosinophils # 0.02 L (0.04-0.35) 10*3/uL Sodium 133 L (137-145) mmol/L BUN <2 L (7-17) mg/dL Creatinine 0.40 L (0.52-1.04) mg/dL Microbiology - Last 24 Hours (Table) 08/31/24 16:09 Blood Culture - Final Blood Assessment and Plan (1) Breast CA Status: Acute Priority: Medium Code(s): C50.919 - MALIGNANT NEOPLASM OF UNSP SITE OF UNSPECIFIED FEMALE BREAST SNOMED Code(s): 617666565 (2) Neutropenic fever Status: Acute Priority: High Code(s): D70.9 - NEUTROPENIA, UNSPECIFIED; R50.81 - FEVER PRESENTING WITH CONDITIONS CLASSIFIED ELSEWHERE SNOMED Code(s): 725129403 (3) Pancytopenia Status: Acute Priority: High Code(s): D61.818 - OTHER PANCYTOPENIA SNOMED Code(s): 194310828 Plan: Neutropenic fever, pancytopenia secondary to chemotherapy - Patient is in her chemo april. - Hgb 7.2, plt 47,000, WBC 5.5, ANC 4.35 - G-CSF given on 08/24. She was also started on Granix daily. Grnaix d/c today - No reported episodes of acute bleeding. Continue to monitor - CBC daily while inpatient. Transfuse for hgb less than 7 and for platelets less than 10,000 or if symptomatic. No aspirin, NSAIDs, anticoagulation. SCDs for DVT prophylaxis Breast cancer - Diagnosis and treatment as documented in consult - Patient has completed neoadjuvant treatment. There are plans for surgery in mid September. -Clinic f/u scheduled on 09/15 Diarrhea -Likely 2/2 low WBC and medications -questran QID, imodium PRN. Diarrhea improving Plan for discharge today. Will start pt on moxifloxacin to complete 7 days of abx treatment Doctor attests: I performed a history and physical examination of this patient, developed impression and plan of care. Discussed with dictator. I agree with dictators note, documented as a scribe.
== END 2024-09-06 14:52 | disposition home or self-care (01) | DRG 809 ==
LOC: EC 15:34 → 5NMEDONC 20:04
PROVIDERS: ADMIT Hospitalist; ATTEND Hospitalist
DX: D61.810 Antineoplastic chemotherapy induced pancytopenia (principal); E87.1 Hypo-osmolality and hyponatremia; D70.9 Neutropenia, unspecified; C50.912 Malignant neoplasm of unspecified site of left female breast; C50.911 Malignant neoplasm of unspecified site of right female breast; E86.0 Dehydration; E03.9 Hypothyroidism, unspecified; E86.1 Hypovolemia; E87.6 Hypokalemia; R50.81 Fever presenting with conditions classified elsewhere; R30.0 Dysuria; R19.7 Diarrhea, unspecified; T45.1X5A Adverse effect of antineoplastic and immunosuppressive drugs, initial encounter; Z88.8 Allergy status to other drugs, medicaments and biological substances; Z80.49 Family history of malignant neoplasm of other genital organs; Z88.1 Allergy status to other antibiotic agents
CPT/HCPCS: 36415; 71046; 80048; 80053; 81003; 83605; 83735; 84132; 84439; 84443; 85025; 86850; 86900; 86901; 87040; 87636; 93005; 96361; 96365; 99285